=== PATIENT | male | born 1965 | race Two or more races ===

== ENCOUNTER 2025-03-03 20:35 | Emergency (ER) | payer OTHER ==
[~2025-03-03] VITALS: Ht 188 cm; Wt 170.5 kg
[2025-03-03] MEDS: ONDANSETRON HCL 4 MG/2 ML VIAL IV ONE (21:00)
[2025-03-03] MEDS: MORPHINE SULFATE INJ 2 MG/ml SYRG IV ONE ×2 (21:00→22:28)
[2025-03-03] MEDS: LABETALOL HCL 20 MG/4 ML VL IV ONE (21:00)
[2025-03-03 21:12] LABS: Basophils # (auto) 0 10 ^3/uL (0-0.2); Basophils % (auto) 0.4 % (0.0-2.0); Eosinophils # (auto) 0.1 10 ^3/uL (0-0.8); Eosinophils % (auto) 1.1 % (0.0-7.0); Hematocrit 41.3 % (41.0-53.0); Hemoglobin 13.9 g/dL (13.5-17.5); Lymphocytes # (auto) 1.3 10 ^3/uL (0.4-5.4); Lymphocytes % (auto) 11.3 % (10.0-50.0); Mean Corpuscular Hgb Conc. 33.5 g/dL (32.0-36.0); Mean Corpuscular Volume 95.4 fL (80.0-100.0); Monocytes # (auto) 0.6 10 ^3/uL (0-1.3); Monocytes % (auto) 5.5 % (0.0-12.0); Neutrophils # (auto) 9.1 10 ^3/uL (1.6-8.6); Neutrophils % (auto) 81.7 % (37.0-80.0); Platelet Count (auto) 303 10^3/uL (140-450); Red Blood Cells 4.33 10^6/uL (4.5-5.90); Red Cell Distribution Width 13.6 % (11.8-14.3); White Blood Cell 11.1 10^3/uL (4.4-10.8)
[2025-03-03] MEDS: IOHEXOL 350 MG/ML 100ML IJ ONE ×2 (21:14→21:15)
[2025-03-03 21:25] LABS: Alanine Aminotransferase 19 U/L (7-40); Albumin 4.7 g/dL (3.2-4.8); Alkaline Phosphatase 90 U/L (46-116); Anion Gap 13 (5-15); Aspartate Aminotransferase 17 U/L (13-40); BUN/Creatinine Ratio 17.5 (10.0-20.0); Blood Urea Nitrogen 18 mg/dL (9-23); Calcium 9.8 mg/dL (8.7-10.4); Carbon Dioxide 24 mmol/L (20-31); Chloride 104 mmol/L (98-107); Potassium 4.5 mmol/L (3.5-5.1); Sodium 141 mmol/L (136-145); Total Protein 7.5 g/dL (5.7-8.2)
[2025-03-03 21:26] LABS: Bilirubin, Total 0.3 mg/dL (0.2-1.0)
[2025-03-03 21:28] LABS: Glucose 149 mg/dL (74-106); INR 1.01 (0.9-1.15); Prothrombin Time 10.7 sec (9.3-11.8)
[2025-03-03] MEDS: MORPHINE SULFATE 4 MG/ML SYR/VIAL ONE ×2 (21:42→22:28)
--- NOTE | 2025-03-03 21:42 | ED.PDOC ---
History of Present Illness HPI Comments 59-year-old male who presents with complaint of severe 10/10 chest pain that radiates to his back, with occasional numbness to his right leg. Patient states on sudden unprovoked onset after attempting to get up from a chair during a follow up appointment for recent cosmetic toe surgery an hour ago prior to arrival. Patient also reports chicken on his blood pressure twice at home and noticing it being elevated at 182/81 and 175/70 over 70 No other recent stressors, strenuous activities, ailments, sick contact, or travel endorsed. Patient has a history of asthma, BPH, chronic pain syndrome, prediabetes, hypertension, morbid obesity, and former tobacco and alcohol user. He denies having any shortness of breath, palpitations, nausea or further associated symptoms. Patient presents CT scan which showed 4.6 cm dilatation of thoracic aorta in 2023. Chief Complaint: Chest Pain Time Seen by MD: 20:30 Reviewed Notes: Nurses Notes, Medications, Allergies Allergies: Coded Allergies: Bee Venom (Verified Allergy, Unknown, 03/03/25) Penicillins (Verified Allergy, Unknown, 03/03/25) Information Source: Patient Mode of Arrival: Ambulatory Severity: Moderate Timing: Hours Duration: Since onset Prehospital treatment: None Review of Systems: REVIEW OF SYSTEMS: No fever, no chills, or fatigue HEENT: No sore throat, no earache, no congestion, no neck pain. Cardiac: Chest pain. No palpitations. Lungs: No shortness of breath, no cough. GI: No nausea, no vomiting, no diarrhea, no constipation, no abdominal pain : No dysuria, frequency, or urgency. No hematuria. Musculoskeletal: Back pain, no joint pain , no joint swelling, no extremity edema. Skin: No rash, no itching. Neuro: Right leg numbness, no headache, no dizziness, no weakness Vital Signs Vital Signs Date Time Temp Pulse Resp B/P (MAP) Pulse Ox O2 Delivery O2 Flow Rate FiO2 03/03/25 22:30 177/78 03/03/25 22:28 65 11 03/03/25 21:54 94 Room Air* 0 21 03/03/25 21:45 99.2 99.2 Physical Exam General: Awake, alert and oriented. No acute distress. Skin: Skin in warm, dry and intact. Appropriate color for ethnicity. HEENT: The head is normocephalic and atraumatic. Conjunctivae are clear without exudates or hemorrhage. Sclera is non-icteric. EOM are intact. No signs of nystagmus. Eyelids are normal in appearance without swelling or lesions. Oral mucosa is pink and moist Neck: The neck is supple with normal range of motion. No JVD. Cardiac: Heart rate and rhythm are normal. No murmurs, gallops, or rubs are auscultated. Right upper quadrant blood pressure is greater than left upper quadrant blood pressure. Radial pulses are equal. Respiratory: No signs of respiratory distress. Lung sounds are clear in all lobes bilaterally without rales, rhonchi, or wheezes. Abdominal: Abdomen is soft, non-tender without distention, guarding or rigidity. Bowel sounds are present and normoactive in all four quadrants. Extremities: Upper and lower extremities are atraumatic in appearance without deformity or edema. Neurological: The patient is awake, alert and oriented to person, place, and time with normal speech. Speech is clear. There is no facial asymmetry. Psychiatric: Appropriate mood and affect. Good judgement and insight. Past Medical History PAST MEDICAL HISTORY: Asthma, HTN Past Medical History (Other): Morbid obesity BPH Prediabetes Chronic pain syndrome Surgical History (Other): Left eye surgery Neck cyst Social History Smoker: Quit Greater Than 1 Year Alcohol: Sober Drugs: Denies Drug Use Lives In: Home Was a procedure done? Was a procedure done?: No EKG EKG #1: Pulse Rate (adult): 65 [place]: Normal Cardiac Rhythm: NSR Block: None Hypertrophy: None ST: Normal EKG #2: Pulse Rate (adult): 59 [place]: Normal Cardiac Rhythm: NSR Block: None Hypertrophy: None ST: Normal Differential Dx Considerations may include: Differential diagnoses considered include acute ischemic coronary syndrome, aortic dissection, cardiac tamponade, mediastinitis, pulmonary embolus, pneumothorax, tension pneumothorax, esophageal rupture, coronary artery vasospasm, myocarditis, pericarditis, pneumonia, pulmonary edema, esophageal tear, pancreatitis, aortic stenosis, dilated cardiomyopathy, hypertrophic cardiomyopathy, mitral valve prolapse, malignancy, pleuritis, pneumomediastinum, primary pulmonary hypertension, cholecystitis, esophageal spasm, esophagus, gastritis, GERD, peptic ulcer disease, costochondritis, fibromyalgia, rib fracture, herpes zoster, radicular syndromes, thoracic outlet syndrome, so matization. X-Ray, Labs, Meds, VS Vital Signs Date Time Temp Pulse Resp B/P (MAP) Pulse Ox O2 Delivery O2 Flow Rate FiO2 03/03/25 22:30 177/78 03/03/25 22:28 65 11 171/74 03/03/25 22:08 59 03/03/25 21:54 60 13 94 Room Air* 0 21 03/03/25 21:45 99.2 60 13 176/70 (105) 94 99.2 03/03/25 21:42 59 03/03/25 21:42 65 03/03/25 21:05 98.0 66 24 194/87 (122) 97 98.0 03/03/25 21:00 66 173/78 03/03/25 21:00 66 22 173/78 03/03/25 20:42 65 Lab Test 03/03/25 21:33 03/03/25 20:44 Range/Units Troponin I High Sensitivity 4 5 </=54 ng/L White Blood Count 11.1 H 4.4-10.8 10^3/uL Red Blood Count 4.33 L 4.5-5.90 10^6/uL Hemoglobin 13.9 13.5-17.5 g/dL Hematocrit 41.3 41.0-53.0 % Mean Corpuscular Volume 95.4 80.0-100.0 fL Mean Corpuscular Hemoglobin 32.0 28.0-32.0 pg Mean Corpuscular Hemoglobin Concent 33.5 32.0-36.0 g/dL Red Cell Distribution Width 13.6 11.8-14.3 % Platelet Count 303 140-450 10^3/uL Mean Platelet Volume 8.1 6.9-10.8 fL Neutrophils (%) (Auto) 81.7 H 37.0-80.0 % Lymphocytes (%) (Auto) 11.3 10.0-50.0 % Monocytes (%) (Auto) 5.5 0.0-12.0 % Eosinophils (%) (Auto) 1.1 0.0-7.0 % Basophils (%) (Auto) 0.4 0.0-2.0 % Neutrophils # (Auto) 9.1 H 1.6-8.6 10 ^3/uL Lymphocytes # (Auto) 1.3 0.4-5.4 10 ^3/uL Monocytes # (Auto) 0.6 0-1.3 10 ^3/uL Eosinophils # (Auto) 0.1 0-0.8 10 ^3/uL Basophils # (Auto) 0 0-0.2 10 ^3/uL Nucleated Red Blood Cells 0.0 % Prothrombin Time 10.7 9.3-11.8 sec Prothrombin Time INR 1.01 0.9-1.15 Sodium Level 141 136-145 mmol/L Potassium Level 4.5 3.5-5.1 mmol/L Chloride Level 104 98-107 mmol/L Carbon Dioxide Level 24 20-31 mmol/L Anion Gap 13 5-15 Blood Urea Nitrogen 18 9-23 mg/dL Creatinine 1.03 0.700-1.30 mg/dL Glomerular Filtration Rate Calc 84 >90 mL/min BUN/Creatinine Ratio 17.5 10.0-20.0 Serum Glucose 149 H 74-106 mg/dL Calcium Level 9.8 8.7-10.4 mg/dL Total Bilirubin 0.3 0.2-1.0 mg/dL Aspartate Amino Transferase (AST) 17 13-40 U/L Alanine Aminotransferase (ALT) 19 7-40 U/L Alkaline Phosphatase 90 46-116 U/L B-Type Natriuretic Peptide 63.82 0-100 pg/mL Total Protein 7.5 5.7-8.2 g/dL Albumin 4.7 3.2-4.8 g/dL Current Medications Medications (Trade) Dose Ordered Sig/Ariel Route Start Time Stop Time Status Last Admin Morphine Sulfate 2 mg ONCE ONCE IV 03/03/25 21:00 03/03/25 21:01 DC 03/03/25 21:00 Ondansetron HCl (Zofran) 4 mg ONCE ONCE IV 03/03/25 21:00 03/03/25 21:01 DC 03/03/25 21:00 Labetalol HCl (Labetalol HCl) 20 mg ONCE ONCE IV 03/03/25 21:00 03/03/25 21:01 DC 03/03/25 21:00 Esmolol HCl (Brevibloc) 5 mg ONCE ONCE IV 03/03/25 21:45 03/03/25 21:46 DC 03/03/25 21:45 Esmolol HCl 250 ml @ 0 mls/hr Q0M IV 03/03/25 21:45 03/03/25 22:30 Morphine Sulfate 2 mg ONCE ONCE IV 03/03/25 22:15 03/03/25 22:16 DC 03/03/25 22:28 Time of 1ST Reevaluation: 21:00 Reevaluation 1ST: Unchanged Patient Education/Counseling: Other (need for transfer) Family Education/Counseling: No Family Present Departure 1 Departure Time of Disposition: 22:05 Impression: Primary Impression: Dissection of descending aorta Disposition: 02 SHORT TERM HOSPITAL Condition: Guarded Comments 59 year old male with dissection of descending aorta. Blood pressure control initiated in ED with labetalol, esmolol bolus and drip and morphine for analgesia. Patient's vs stable at this time but guarded prognosis. Will transfer to [facility] for CT surgery/Vascular surgery availability. 2139: Discussed with ER Provider at [place] request for transfer due to lack of vascular or CT surgery availability at this facility and obvious dissection on CTA. She is requesting official radiologist interpretation of scan prior to accepting for transfer. 2146: Discussed with Dr. Cesar ER provider at [facility]. Recommendation is discuss with CT surgery prior to acceptance. [facility] is on advisory / diversion at this time due to capacity. 2150: Discussed with Dr. Spears CT surgeon at [facility], recommendation is no surgical emergent surgical management at this time. Recommends medical management with blood pressure control. He will consult on patient if admitted to [facility] under medical management. Patient accepted for transfer to [facility]. Extensive evaluation was performed in attempt to identify or rule out: (See differential diagnosis section) The following tests were ordered, and results were reviewed by me and discussed with patient: (See diagnostic results section) The following test were independently interpreted by me: EKG, CT angiogram Chest Abdomen Pelvic-dissection of descending aorta thoracic to abdomen above level of renal arteries. I reviewed and agreed with the following test results read by other providers: N/A I reviewed the following notes from the pt's past medical encounters: N/A Additional information was gathered from interviewing the following independent historians: N/A Discussion of management or test interpretation with external physician/other qualified health healthcare science specialist: N/A Addressed an acute or chronic illness that poses a threat to life or bodily function: Aortic Dissection Decision regarding hospitalization or escalation of hospital level of care: Risk and benefits of admission for further treatment of patient's condition was considered. Due to patient's current clinical condition, high risk of decline and poor outcome if discharged and need for further inpatient management and monitoring, patient will be admitted to the hospital. Drug therapy requiring intensive monitoring for toxicity: IV Contrast. IV labetalol. IV esmolol Parenteral controlled substances: IV morphine Decision regarding elective major surgery with identified patient or procedure risk factors: N/A Decision regarding emergency major surgery: N/A Decision not to resuscitate or to de-escalate care because of poor prognosis: N/A Diagnosis or treatment significantly limited by social determinants of health: N/A Critical Care Note Critical Care Time?: Yes (1 hr-critical care time only) Stability Stability form required: No Heart Score Heart Score: Heart Score Response (Comments) Value History Highly Suspicious 2 EKG Normal 0 Age 45-64 1 Risk Factors >3 or Hx ASHD 2 Troponin Normal limit 0 Total 5 I personally scribed for LUCÍA MATTHEWS MD ([email or web address]) on 03/03/25 at 21:42. Electronically submitted by Bentley Zambrano ([email or web address]). I personally scribed for LUCÍA MATTHEWS MD ([email or web address]) on 03/03/25 at 21:43. Electronically submitted by Bentley Zambrano ([email or web address]). I personally scribed for LUCÍA MATTHEWS MD ([email or web address]) on 03/03/25 at 22:08. Electronically submitted by Bentley Zambrano ([email or web address]). LUCÍA MATTHEWS MD Mar 03, 2025 21:42
[2025-03-03] MEDS: ESMOLOL HCL (10MG/ML) 10 ML VIAL IV ONE (21:45)
[2025-03-03 21:54] VITALS: PULSE 60; RESP 13; O2SAT 94
[2025-03-03] MEDS: ESMOLOL HCL 10MG/ML 250 ML IV SCH (22:30)
--- NOTE | 2025-03-03 22:38 | DVH ---
Exam: CT CT CHEST/AB/PL W CON- IV ONLY History: r/o dissection/ AAA Comparison Study: NO PRIOR STUDIES FOR COMPARISON. Contrast: Type of contrast: Omni 350 Contrast injected: 150 mL Contrast wasted: 0 TECHNIQUE: A digital dextrine mixer image was obtained. During the uneventful, intravenous administration of c ontrast material, multislice data acquisition was obtained through the abdomen and pelvis. The data s et was subsequently reconstructed into axial images. Images were reviewed on a work station using a c ombination of axial and multiplanar using a variety of window levels and settings. Radiation Dose Information: CT Dose: CTDI volume is 20.44 mGy. Dose-length product is 4172.45 mGy*cm FINDINGS: Lung Bases: No acute or significant lung base finding. Normal heart size. No pleural or pericardial effusion. Liver: The liver is normal in size. No focal lesions. Normal hepatic vascular enhancement. Gallbladder and Biliary Tree: Unremarkable Spleen: Unremarkable Pancreas: The pancreas is normal in appearance without focal lesions or abnormal enhancement. Adrenal Glands: Unremarkable Kidneys: Kidneys demonstrate normal symmetric enhancement without focal lesions, calculi or hydroneph rosis. 5.7 cm left renal cyst Bladder: Unremarkable Bowel: The stomach is grossly normal in appearance. Small bowel and colon are normal in caliber and d istribution. The appendix is not visualized; however, no secondary findings of acute appendicitis timothy ntified. Ascites: Absent Lymphadenopathy: No mesenteric, retroperitoneal or periportal lymphadenopathy. Abdominal Wall and Mesentery: Unremarkable. Vasculature: Aortic dissection in the descending thoracic aorta into the abdominal aorta. That appear s to originate just distal to the left subclavian artery and extends to the diaphragm and distal to t he celiac and superior mesenteric arteries and into the iliac arteries bilaterally. This is considere d a [place] type B dissection or [place]ake[place] Type 3 dissection and extends inferior to the Celiac and [place] perior Mesenteric arteries with no occlusion. The aortic dissection also appears extend into the katina l arteries and right and left iliac arteries. CT resolution is inadequate to determine if the dissection extends into the renal arteries 4 into the iliac arteries. Patient's body size precludes resolution necessary to determine Pelvic Organs: Unremarkable Musculoskeletal: No aggressive focal bony lesions, acute fractures or dislocation. Soft tissues: Unremarkable. IMPRESSION: 1. Aortic dissection originating distal to the left subclavian artery and extending into the abdomen and iliac arteries bilaterally. 2. Dissection extends into the celiac and superior mesenteric artery. 3. CT resolution is suboptimal because of patient body size for definitive evaluation of extent of th e dissection. 4. Dissection appears to extend into the right and left renal arteries into the right and left iliac arteries to the femoral artery. All CT scans at this medical facility are performed using dose modulation techniques as appropriate t o a performed exam including the following: Automated exposure control was utilized; adjustment of th e MA and/or KV according to patient size; and use of iterative reconstruction technique.
[2025-03-03 22:44] VITALS: TEMP 98.6
[2025-03-03 22:45] VITALS: O2SAT 94
[2025-03-03 23:00] VITALS: BP 162/82; PULSE 67; RESP 13
--- NOTE | 2025-03-04 06:06 | ECG ---
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
--- NOTE | 2025-03-04 06:53 | ECG ---
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
== END 2025-03-03 22:59 | disposition home or self-care (01) ==
LOC: ER 20:42
DX: I71.012 Dissection of descending thoracic aorta (principal); J45.909 Unspecified asthma, uncomplicated; I10 Essential (primary) hypertension; Z88.0 Allergy status to penicillin; Z79.899 Other long term (current) drug therapy
CPT/HCPCS: 36415; 71260; 74177; 80053; 83880; 84484; 85025; 85610; 93005; 96374; 96375; 96376; 99285; J2270; J2405; Q9967

== ENCOUNTER 2025-06-17 09:22 | Inpatient (IN) | payer OTHER ==
[~2025-06-17] VITALS: Ht 188 cm; Wt 140.7 kg
[2025-06-17] VITALS (9 sets, daily range): BP systolic 107–136; BP diastolic 68–78; PULSE 58–92; RESP 12–20; TEMP 97.7–98.7; O2SAT 95–100
[2025-06-17] MEDS: LACTATED RINGER'S 2,450 ML IV ONE (10:36)
[2025-06-17 10:46] LABS: Hematocrit 41.3 % (41.0-53.0); Hemoglobin 14.1 g/dL (13.5-17.5); Mean Corpuscular Hemoglobin 29.1 pg (28.0-32.0); Mean Corpuscular Volume 85.2 fL (80.0-100.0); Nucleated Red Blood Cells % 0.0 %
--- NOTE | 2025-06-17 10:56 | DVH ---
CHEST RADIOGRAPH Indication: sob Technique: Single frontal view of the chest was obtained COMPARISON: CT CT CHEST/AB/PL W CON- IV ONLY on DOS: 03/03/25 FINDINGS: Lines and Tubes: None Lungs: Clear Pleura: No effusion. No pneumothorax. Cardiomediastinal contours: Thoracic aorta stent in-situ. Bones: Unremarkable IMPRESSION: No acute disease.
--- NOTE | 2025-06-17 10:59 | ED.PDOC ---
SOB-HPI HPI Comments 59 y/o M, with PMHx of AAA, DM II, HTN, and asthma presents to the ED for CC of shortness of breath. EMS reports, patient is coming from home where he c/o of having a syncopal episode then becoming short of breath following episode. Per EMS, upon arrival to scene patient was found down on the floor with labored breathing; respirations 35 and SpO2 at 95% via 2L NC. Upon arrival to the ED, patient further complains of diarrhea and poor appetite. Patient denies fever, chills, sore-throat, abdominal pain, or chest pain. No other symptoms or modifying factors are present at this time. Chief Complaint: Shortness of Breath Time Seen by MD: 10:15 Reviewed notes: Nurses Notes, Community Nurse Notes, Medications, Allergies Information Source: Patient, Emergency Med Personnel Mode of Arrival: EMS Severity: Moderate Timing: Days Duration: Since onset Context: At Rest PE Risk Factors: None History of: Asthma Prehospital treatment: None Modifying Factors: Nothing Associated Signs and Symptoms: None Past Medical History PAST MEDICAL HISTORY: Asthma, DM, HTN Surgical History (Other): AAA REPAIR Family History Family History: Unknown Social History Smoker: Quit Greater Than 1 Year Alcohol: Sober Drugs: Denies Drug Use Lives In: Home Constitutional: denies: chills, diaphoresis, fatigue, fever, malaise, sweats, weakness, others EENTM: denies: blurred vision, double vision, ear bleeding, ear discharge, ear drainage, ear pain, ear ringing, eye pain, eye redness, hearing loss, mouth pain, mouth swelling, nasal discharge, nose bleeding, nose congestion, nose pain, photophobia, tearing, throat pain, throat swelling, voice changes, others Respiratory: reports: shortness of breath; denies: cough, hemoptysis, orthopnea, SOB at rest, SOB with excertion, stridor, wheezing, others Cardiovascular: denies: chest pain, dizzy spells, diaphoresis, Dyspnea on exertion, edema, irregular heart beat, left arm pain, lightheadedness, palpitations, PND, syncope, others Gastrointestinal: reports: poor appetite; denies: abdomen distended, abdominal pain, blood streaked bowels, constipated, diarrhea, dysphagia, difficulty swallowing, hematemesis, melena, nausea, poor fluid intake, rectal bleeding, rectal pain, vomiting, others Genitourinary: denies: burning, dysuria, flank pain, frequency, hematuria, incontinence, penile discharge, penile sore, pain, testicle pain, testicle swelling, urgency, others Neurological: denies: dizziness, fainting, headache, left sided numbness, left sided weakness, numbness, paresthesia, pre-existing deficit, right sided numbness, right sided weakness, seizure, speech problems, tingling, tremors, weakness, others Musculoskeletal: denies: back pain, gout, joint pain, joint swelling, muscle pain, muscle stiffness, neck pain, others Integumetry: denies: bruises, change in color, change in hair/nails, dryness, laceration, lesions, lumps, rash, wounds, others Allergic/Immunocompromised: denies: Difficulty Healing, Frequent Infections, Hives, Itching, others Hematologic/Lymphatic: denies: anemia, blood clots, easy bleeding, easy bruising, swollen glands, others Endocrine: denies: excessive hunger, excessive sweating, excessive thirst, excessive urination, flushing, intolerance to cold, intolerance to heat, unexplained weight gain, unexplained weight loss, others Psychiatric: denies: anxiety, bipolar disorder, depression, hopeless, panic disorder, schizophrenia, sleepless, suicidal, others All Other Systems: Reviewed and Negative Physical Exam General Appearance: No Apparent Distress, Obese HEENT: Normal ENT Inspection, Pharynx Normal Neck: Full Range of Motion, Non-Tender, Normal, Normal Inspection Respiratory: Chest Non-Tender, Lungs Clear, Other (tachypnea breathing) Cardiovascular: No Edema, No Murmur, No Gallop, Normal Peripheral Pulses, Regular Rate/Rhythm Breast Exam: Deferred Gastrointestinal: No Organomegaly, Non Tender, No Pulsatile Mass, Normal Bowel Sounds, Soft Genitalia: Deferred Pelvic: Deferred Rectal: Deferred Extremities: No calf tenderness, Normal capillary refill, Normal inspection, Normal range of motion, Non-tender, No pedal edema Musculoskeletal : Apperance: Normal Neurologic: Alert, strainer tender II-XII nml as Tested, No Motor Deficits, Normal Affect, Normal Mood, No Sensory Deficits Cerebellar Function: Normal Reflexes: Normal Skin: Dry, Normal Color, Warm Lymphatic: No Adenopathy Was a procedure done? Was a procedure done?: No Differential Dx Differential Diagnosis: Asthma, Bronchitis, Pneumonia, Sinusitis, Pharyngitis, URI X-Ray, Labs, Meds, VS Vital Signs Date Time Temp Pulse Resp B/P (MAP) Pulse Ox O2 Delivery O2 Flow Rate FiO2 06/17/25 13:00 74 10 136/76 (96) 96 06/17/25 12:45 76 06/17/25 11:00 92 10 105/69 (81) 99 06/17/25 10:50 90 06/17/25 09:57 92 12 98 Nasal Cannula* 3 32 06/17/25 09:57 97.7 92 12 97/58 (71) 98 97.7 06/17/25 09:33 97.7 95 35 104/68 94 97.7 Lab Test 06/17/25 12:42 06/17/25 10:30 Range/Units Lactic Acid Level 3.7 *H 4.3 *H 0.4-2.0 mmol/L White Blood Count 12.5 H 4.4-10.8 10^3/uL Red Blood Count 4.85 4.5-5.90 10^6/uL Hemoglobin 14.1 13.5-17.5 g/dL Hematocrit 41.3 41.0-53.0 % Mean Corpuscular Volume 85.2 80.0-100.0 fL Mean Corpuscular Hemoglobin 29.1 28.0-32.0 pg Mean Corpuscular Hemoglobin Concent 34.2 32.0-36.0 g/dL Red Cell Distribution Width 16.0 H 11.8-14.3 % Platelet Count 174 140-450 10^3/uL Mean Platelet Volume 8.7 6.9-10.8 fL Neutrophils (%) (Auto) 86.7 H 37.0-80.0 % Lymphocytes (%) (Auto) 9.1 L 10.0-50.0 % Monocytes (%) (Auto) 3.9 0.0-12.0 % Eosinophils (%) (Auto) 0.2 0.0-7.0 % Basophils (%) (Auto) 0.1 0.0-2.0 % Neutrophils # (Auto) 10.8 H 1.6-8.6 10 ^3/uL Lymphocytes # (Auto) 1.1 0.4-5.4 10 ^3/uL Monocytes # (Auto) 0.5 0-1.3 10 ^3/uL Eosinophils # (Auto) 0 0-0.8 10 ^3/uL Basophils # (Auto) 0 0-0.2 10 ^3/uL Nucleated Red Blood Cells 0.0 % Prothrombin Time 11.8 9.3-11.8 sec Prothrombin Time INR 1.13 0.9-1.15 Activated Partial Thromboplast Time 27.3 24.5-34.5 SEC Sodium Level 126 L 136-145 mmol/L Potassium Level 3.0 L 3.5-5.1 mmol/L Chloride Level 82 L 98-107 mmol/L Carbon Dioxide Level 22 20-31 mmol/L Anion Gap 22 H 5-15 Blood Urea Nitrogen 38 H 9-23 mg/dL Creatinine 2.54 H 0.700-1.30 mg/dL Glomerular Filtration Rate Calc 28 >90 mL/min BUN/Creatinine Ratio 15.0 10.0-20.0 Serum Glucose 92 74-106 mg/dL Calcium Level 9.3 8.7-10.4 mg/dL Total Bilirubin 0.9 0.2-1.0 mg/dL Aspartate Amino Transferase (AST) 24 13-40 U/L Alanine Aminotransferase (ALT) 20 7-40 U/L Alkaline Phosphatase 125 H 46-116 U/L Total Protein 6.7 5.7-8.2 g/dL Albumin 3.7 3.2-4.8 g/dL Current Medications Medications (Trade) Dose Ordered Sig/Ariel Route Start Time Stop Time Status Last Admin Lactated Ringer's 2,450 ml @ 2,450 mls/hr ONCE ONCE IV 06/17/25 10:30 06/17/25 11:29 DC 06/17/25 10:36 Vancomycin HCl 250 ml @ 250 mls/hr ONCE ONCE IV 06/17/25 11:15 06/17/25 12:14 DC 06/17/25 11:28 Cefepime HCl 50 ml @ 12.5 mls/hr Q12H IV 06/17/25 11:20 06/17/25 12:[address] [address] Ph: [phone] DIAGNOSTIC IMAGING Diagnostic Imaging Report : [id number] Signed PATIENT: DAYNE FORRESTER ACCT: [id number] UNIT: [id number] : 1965 LOC: ER ROOM / BED: / AGE / SEX: 59 / M ADM STATUS: REG ER SERVICE 1019 ORDERING PHYSICIAN: MOISES BURKS MD PROCEDURE(s): CXRP - CHEST PORTABLE REASON: sob ORDER NUMBER(s): [id number], ACCESSION NUMBER(s): [id number] CHEST RADIOGRAPH Indication: sob Technique: Single frontal view of the chest was obtained COMPARISON: CT CT CHEST/AB/PL W CON- IV ONLY on DOS: 03/03/25 FINDINGS: Lines and Tubes: None Lungs: Clear Pleura: No effusion. No pneumothorax. Cardiomediastinal contours: Thoracic aorta stent in-situ. Bones: Unremarkable IMPRESSION: No acute disease. ATED BY: SAGE HUTTON MD DICTATED DATE/TIME: 06/17/25 105 SIGNED BY: SAGE HUTTON MD SIGNED DATE/TIME: 06/17/25 105 CC: Time of 1ST Reevaluation: 10:45 Reevaluation 1ST: Unchanged Patient Education/Counseling: Diagnosis, Treatment Family Education/Counseling: No Family Present SEPSIS Sepsis Screen Date sepsis recognized/suspect: Jun 17, 2025 Time Sepsis recognized/suspect: 927 Recent Procedure: No On Antibiotic Therapy: No Respiratory Rate >20: Yes Heart Rate >90: No Temp<36 C (96.8 F) or >38.3 C: No SBP <90 or MAP <65 mmHG: No New Acute Mental Status Change: No Is the patient on CPAP, BIPAP,: No Physician Orders Urinalysis (06/17/25 10:19) Chest Portable (06/17/25 10:19) Accucheck (06/17/25 10:19) Blood Culture (06/17/25 10:19) Notify Md If Map <65 Or Bp<90 (06/17/25 10:19) If Map<65 Start Vasopressor (06/17/25 10:19) Sepsis Reassesment After Fluid (06/17/25 11:19) Cefepime 1gm/50ml (Maxipime 1gm/50ml) (06/17/25 11:20) Sodium Chloride 0.9% (06/17/25 14:00) Vital Signs Date Time Temp Pulse Resp B/P (MAP) Pulse Ox O2 Delivery O2 Flow Rate FiO2 06/17/25 13:00 74 10 136/76 (96) 96 06/17/25 12:45 76 06/17/25 11:00 92 10 105/69 (81) 99 06/17/25 10:50 90 06/17/25 09:57 92 12 98 Nasal Cannula* 3 32 06/17/25 09:57 97.7 92 12 97/58 (71) 98 97.7 06/17/25 09:33 97.7 95 35 104/68 94 97.7 Laboratory Tests Test 06/17/25 10:30 06/17/25 12:42 Lactic Acid Level 4.3 mmol/L (0.4-2.0) *H 3.7 mmol/L (0.4-2.0) *H White Blood Count 12.5 10^3/uL (4.4-10.8) H Medications Medications Dose Ordered Sig/Ariel Route Start Time Stop Time Status Last Admin Dose Admin Cefepime HCl 50 ml @ 12.5 mls/hr Q12H IV 06/17/25 11:20 06/17/25 12:35 Lactated Ringer's 2,450 ml @ 2,450 mls/hr ONCE ONCE IV 06/17/25 10:30 06/17/25 11:29 DC 06/17/25 10:36 Vancomycin HCl 250 ml @ 250 mls/hr ONCE ONCE IV 06/17/25 11:15 06/17/25 12:14 DC 06/17/25 11:28 Departure 1 Departure Time of Disposition: 14:35 ([place] authorization to admit to [facility] [id number] with concern for septic shock. Patient is not unstable for transfer. We will empirically cover patient with antibiotics fluids and admit patient for further workup and expert consultation) Impression: Primary Impression: Septic shock Additional Impression: Generalized weakness Disposition: ADMITTED INPATIENT Admit to: [facility] Condition: Guarded Critical Care Note Critical Care Time?: Yes Critical care comment: Concern for septic shock Authorized and Performed by: Moises Burks MD Total critical care time: Approximately 129 minutes Due to a high probability of clinically significant, life threatening d eterioration, the patient required my highest level of preparedness to intervene emergently and I personally spent this critical care time directly and personally managing the patient. This critical care time included obtaining a history; examining the patient; pulse oximetry; ordering and review of studies; arranging urgent treatment with development of a management plan; evaluation of patient's response to treatment; frequent reassessment; and, discussions with other providers. This critical care time was performed to assess and manage the high probability of imminent, life-threatening deterioration that could result in multi-organ failure. It was exclusive of separately billable procedures and treating other patients and teaching time. Please see my other sections and the rest of the note for further information on patient assessment and treatment. Stability Stability form required: No Heart Score Heart Score: Heart Score Response (Comments) Value History N/A 0 EKG N/A 0 Age N/A 0 Risk Factors N/A 0 Troponin N/A 0 Total 0 I personally scribed for MOISES BURKS MD ([email or web address]) on 06/17/25 at 10:59. Electronically submitted by Rosy Edwards ([email or web address]). I personally scribed for MOISES BUKRS MD ([email or web address]) on 06/17/25 at 12:56. Electronically submitted by Rosy Edwards ([email or web address]). MOISES BURKS MD Jun 17, 2025 10:59
[2025-06-17 11:01] LABS: Alanine Aminotransferase 20 U/L (7-40); Albumin 3.7 g/dL (3.2-4.8); Anion Gap 22 (5-15); BUN/Creatinine Ratio 15.0 (10.0-20.0); Bilirubin, Total 0.9 mg/dL (0.2-1.0); Calcium 9.3 mg/dL (8.7-10.4); Carbon Dioxide 22 mmol/L (20-31); Glucose 92 mg/dL (74-106); Total Protein 6.7 g/dL (5.7-8.2)
[2025-06-17 11:03] LABS: Alkaline Phosphatase 125 U/L (46-116); Blood Urea Nitrogen 38 mg/dL (9-23); Chloride 82 mmol/L (98-107); Potassium 3.0 mmol/L (3.5-5.1); Sodium 126 mmol/L (136-145)
[2025-06-17 11:08] LABS: Lactic Acid w/Reflex 4.3 mmol/L (0.4-2.0)
[2025-06-17] MEDS ORDERED: CEFEPIME 1GM/50ML 50 ML IV SCH ×3 (11:15→14:00)
[2025-06-17] MEDS: VANCOMYCIN 1GM/250ML KIT 250 ML IV ONE (11:28)
[2025-06-17 11:51] LABS: INR 1.13 (0.9-1.15); Partial Thromboplastin Time 27.3 SEC (24.5-34.5); Prothrombin Time 11.8 sec (9.3-11.8)
[2025-06-17] MEDS: CEFEPIME 1GM/50ML 50 ML IV SCH (12:35)
--- NOTE | 2025-06-17 12:36 | ECG ---
[facility] Test Date: 2025-06-17 Test Time: 09:44:22 Pat Name: DAYNE FORRESTER Department: [facility] ED Patient ID: [facility]-[id number] Room: Gender: M [facility] Former: IVELISSE : 1965 Requested By: MOISES HAMPTON Order Number: [id number] Reading MD: Measurements Intervals [place] Rate: 97 P: -21 NV: 143 QRS: 9 QRSD: 151 T: -12 QT: 324 QTc: 412 Interpretive Statements Sinus rhythm Consider right atrial enlargement Nonspecific intraventricular conduction delay Minimal ST depression Artifact in lead(s) I,III,aVL Please click the below link to view image of tracing.
[2025-06-17] MEDS: SODIUM CHLORIDE 0.9% 1,000 ML IV ONE (15:59)
[2025-06-17 16:35] LABS: Urine Protein, UAD 1+ (Negative)
[2025-06-17] MEDS ORDERED: SUCR1TAB PO (16:47)
--- NOTE | 2025-06-17 16:57 | DVHHP2 ---
History of Present Illness Reason for Visit: SOB History of Present Illness Immanuel Mcmahan is a 59-year-old male with past medical history of nephrolithiasis, asthma, diabetes, hypertension, left retina surgery, mole removal on chest and shoulder, and removal of cyst on neck, and AAA repair who presents to the ED with shortness of breath and reports that has been ongoing for several months since February of 2025 after his AAA repair. Patient also reports of having a syncopal episode then becoming short of breath. Per EMS reports patient was found on the floor with labored breathing and satting around 95% on 2 L nasal cannula with respirations 35. Patient also endorsing poor appetite and diarrhea. Patient reports that [place] had initially sent him to a rehab facility then he stated that he went to [facility] and was supposed to go to a post-acute center. Patient also endorses vomiting bile like color for the last several months as well as coughing up clear phlegm. Patient reports that he is compliant with his medications but does not recall the names of them. He also endorses that he has not walked since February of 2025. He did state that when he was hospitalized physical therapy was working with him and he was able to use a front wheel walker. Patient also reports that he quit smoking 6 years ago. He also denies of any kidney issues except for kidney stones. Patient denies of any chest pain, fever, chills, lightheadedness, weakness, dizziness, recent trauma or injury, recent sick contacts, recent travels, recent ingestion of spoiled food, abdominal pain, or urinary symptoms. The primary nurse reported that she had to prompt the patient to void as when she had bladder scan him it was over 800 mL. Shortly afterwards patient was able to void over 900 mL. Patient did endorse to nurse that he takes Flomax. Cardiovascular: HTN Pulmonary: Asthma Endocrine: Diabetes Past Surgical History: Other (AAA repair) Family History: Cancer, Other (Dad with cancer unknown per patient) Smoke: Quit ALCOHOL: none Drugs: None Lives: Alone Domestic Violence: Neg Review of Systems Constitutional: Yes: Other (Syncope) Respiratory: Shortness of breath Gastrointestinal: Diarrhea Allergies: Coded Allergies: Bee Venom (Verified Allergy, Unknown, 03/03/25) Penicillins (Verified Allergy, Unknown, 03/03/25) Medications Current Medications Medications Dose Ordered Sig/Ariel Route Start Time Stop Time Status Last Admin Dose Admin Cefepime HCl 50 ml @ 12.5 mls/hr Q12H IV 06/17/25 11:20 06/17/25 12:35 12.5 MLS/HR Exam Vital Signs Vital Signs Date Time Temp Pulse Resp B/P (MAP) Pulse Ox O2 Delivery O2 Flow Rate FiO2 06/17/25 13:00 74 10 136/76 (96) 96 06/17/25 09:57 Nasal Cannula* 3 32 06/17/25 09:57 97.7 97.7 General Appearance: Alert, Oriented X3, Cooperative, No acute distress HEENT: Atraumatic, Mucous membr. moist/pink Respiratory: Normal air movement Cardiovascular: Regular rate, Normal S1, Normal S2 Abdominal: Soft Neuro: Normal speech, Sensation intact Psych/Mental Status: Mental status NL, Mood NL Labs/Xrays Labs Test 06/17/25 12:42 06/17/25 10:30 06/17/25 10:19 Range/Units Lactic Acid Level 3.7 *H 0.4-2.0 mmol/L White Blood Count 12.5 H 4.4-10.8 10^3/uL Red Blood Count 4.85 4.5-5.90 10^6/uL Hemoglobin 14.1 13.5-17.5 g/dL Hematocrit 41.3 41.0-53.0 % Mean Corpuscular Volume 85.2 80.0-100.0 fL Mean Corpuscular Hemoglobin 29.1 28.0-32.0 pg Mean Corpuscular Hemoglobin Concent 34.2 32.0-36.0 g/dL Red Cell Distribution Width 16.0 H 11.8-14.3 % Platelet Count 174 140-450 10^3/uL Mean Platelet Volume 8.7 6.9-10.8 fL Neutrophils (%) (Auto) 86.7 H 37.0-80.0 % Lymphocytes (%) (Auto) 9.1 L 10.0-50.0 % Monocytes (%) (Auto) 3.9 0.0-12.0 % Eosinophils (%) (Auto) 0.2 0.0-7.0 % Basophils (%) (Auto) 0.1 0.0-2.0 % Neutrophils # (Auto) 10.8 H 1.6-8.6 10 ^3/uL Lymphocytes # (Auto) 1.1 0.4-5.4 10 ^3/uL Monocytes # (Auto) 0.5 0-1.3 10 ^3/uL Eosinophils # (Auto) 0 0-0.8 10 ^3/uL Basophils # (Auto) 0 0-0.2 10 ^3/uL Nucleated Red Blood Cells 0.0 % Prothrombin Time 11.8 9.3-11.8 sec Prothrombin Time INR 1.13 0.9-1.15 Activated Partial Thromboplast Time 27.3 24.5-34.5 SEC Sodium Level 126 L 136-145 mmol/L Potassium Level 3.0 L 3.5-5.1 mmol/L Chloride Level 82 L 98-107 mmol/L Carbon Dioxide Level 22 20-31 mmol/L Anion Gap 22 H 5-15 Blood Urea Nitrogen 38 H 9-23 mg/dL Creatinine 2.54 H 0.700-1.30 mg/dL Glomerular Filtration Rate Calc 28 >90 mL/min BUN/Creatinine Ratio 15.0 10.0-20.0 Serum Glucose 92 74-106 mg/dL Calcium Level 9.3 8.7-10.4 mg/dL Total Bilirubin 0.9 0.2-1.0 mg/dL Aspartate Amino Transferase (AST) 24 13-40 U/L Alanine Aminotransferase (ALT) 20 7-40 U/L Alkaline Phosphatase 125 H 46-116 U/L Total Protein 6.7 5.7-8.2 g/dL Albumin 3.7 3.2-4.8 g/dL Urine Color Yellow Yellow Urine Clarity Turbid H Clear Urine pH 5.5 5.0-9.0 Urine Specific [place] 1.023 1.001-1.035 Urine Protein 1+ H Negative Urine Ketones Trace Negative Urine Blood Negative Negative /uL Urine Nitrite Negative Negative Urine Bilirubin 1+ Negative Urine Urobilinogen 3 H Negative mg/dL Urine Leukocyte Esterase Negative Negative /uL Urine RBC 1 0 - 3 /hpf Urine Microscopic WBC 5 H 0-3 /HPF Urine Squamous Epithelial Cells Few <5 /hpf Urine Bacteria None seen None Seen /hpf Urine Hyaline Casts Few 0 - 2 /lpf Urine Mucus Few None Seen Urine Glucose Normal Normal mg/dL CHEST RADIOGRAPH Indication: sob Technique: Single frontal view of the chest was obtained COMPARISON: CT CT CHEST/AB/PL W CON- IV ONLY on DOS: 03/03/25 FINDINGS: Lines and Tubes: None Lungs: Clear Pleura: No effusion. No pneumothorax. Cardiomediastinal contours: Thoracic aorta stent in-situ. Bones: Unremarkable IMPRESSION: No acute disease. SEPSIS Sepsis Screen Date sepsis recognized/suspect: Jun 17, 2025 Time Sepsis recognized/suspect: 956 Recent Procedure: No On Antibiotic Therapy: Yes Respiratory Rate >20: No Heart Rate >90: Yes Temp<36 C (96.8 F) or >38.3 C: No SBP <90 or MAP <65 mmHG: No New Acute Mental Status Change: No Is the patient on CPAP, BIPAP,: No Physician Orders Chest Portable (06/17/25 10:19) Accucheck (06/17/25 10:19) Blood Culture (06/17/25 10:19) Notify Md If Map <65 Or Bp<90 (06/17/25 10:19) If Map<65 Start Vasopressor (06/17/25 10:19) Sepsis Reassesment After Fluid (06/17/25 11:19) Cefepime 1gm/50ml (Maxipime 1gm/50ml) (06/17/25 11:20) Vital Signs Date Time Temp Pulse Resp B/P (MAP) Pulse Ox O2 Delivery O2 Flow Rate FiO2 06/17/25 13:00 74 10 136/76 (96) 96 06/17/25 12:45 76 06/17/25 11:00 92 10 105/69 (81) 99 06/17/25 10:50 90 06/17/25 09:57 92 12 98 Nasal Cannula* 3 32 06/17/25 09:57 97.7 92 12 97/58 (71) 98 97.7 06/17/25 09:33 97.7 95 35 104/68 94 97.7 Laboratory Tests Test 06/17/25 10:30 06/17/25 12:42 Lactic Acid Level 4.3 mmol/L (0.4-2.0) *H 3.7 mmol/L (0.4-2.0) *H White Blood Count 12.5 10^3/uL (4.4-10.8) H Medications Medications Dose Ordered Sig/Ariel Route Start Time Stop Time Status Last Admin Dose Admin Cefepime HCl 50 ml @ 12.5 mls/hr Q12H IV 06/17/25 11:20 06/17/25 12:35 12.5 MLS/HR Lactated Ringer's 2,450 ml @ 2,450 mls/hr ONCE ONCE IV 06/17/25 10:30 06/17/25 11:29 DC 06/17/25 10:36 2,450 MLS/HR Sodium Chloride 1,000 ml @ 1,000 mls/hr Q1H ONCE IV 06/17/25 14:00 06/17/25 14:59 DC 06/17/25 15:59 1,000 MLS/HR Vancomycin HCl 250 ml @ 250 mls/hr ONCE ONCE IV 06/17/25 11:15 06/17/25 12:14 DC 06/17/25 11:28 250 MLS/HR Assessment/Plan Assessment/Plan Assessment Acute on chronic asthma exacerbation Leukocytosis unclear etiology Hyponatremia Hypokalemia TATE/CKD Lactic acidosis likely sepsis Septic shock Intractable diarrhea Autonomic imbalance Obesity History of left retina surgery History of mole removal on chest and shoulder History of removal of cyst on neck History of diabetes History of hypertension History of AAA repair History of tobacco use History of nephrolithiasis Plan Ad[place] [facility] [place] [facility] IV antibiotics-ceftriaxone Replete lytes Hemoglobin A1c ISS and Accu-Cheks D-dimer NS 1 L given in ED Vancomycin + cefepime given in ED LR given in ED Lactic level noted Blood cultures Chest x-ray noted UA PT/PTT EKG C diff stool Dietary consult Diet Home medications reconciled DVT prophylaxis-Lovenox PUD prophylaxis-PPIs Discussed plan of care with patient and nurse Nephrology consult Counseled patient on lifestyle modifications, diet, and exercise [id number] Preventive counseling healthy eating habits, physical activity, and reg ular checkups Plan discussed with: Patient Date of Service: Jun 17, 2025 Billing Provider: JEREMIAH GAMEZ Common Visit Codes: [id number] INP/OBS CARE (HIGH) Secondary Visit Codes: [id number] COUNSELING IND JEREMIAH GAMEZ Jun 17, 2025 16:57
[2025-06-17] MEDS ORDERED: DEXTROSE (50%) 50ML SYRG IV PRN (17:30)
[2025-06-17] MEDS: SUCRALFATE 1 GM TAB PO SCH (17:56)
[2025-06-17] MEDS: POTASSIUM CHL 20 Meq TABLET PO ONE (17:56)
[2025-06-17] MEDS: TAMSULOSIN HYDROCHLORIDE 0.4 MG CAP PO SCH (17:59)
[2025-06-17] MEDS: ALBUTEROL SULF 2.5 MG/0.5ML(0.5%) NEB SOLN NEB SCH (18:43)
[2025-06-17] MEDS: IPRATROPIUM BROM 0.5 MG/2.5ML INH SOL NEB SCH (18:43)
[2025-06-17] MEDS ORDERED: TERA5CAP42 PO (20:23)
[2025-06-17] MEDS ORDERED: CICL80AE2 INH (20:23)
[2025-06-17] MEDS ORDERED: BISO5TAB44 PO (20:23)
[2025-06-17] MEDS ORDERED: GABA-1250 PO (20:23)
[2025-06-17] MEDS ORDERED: ASPI-498 OR (20:23)
[2025-06-17] MEDS: ACCU-CHEK COMFORT CURVE STRIP VI SCH (21:32)
[2025-06-17] MEDS: InsuLIN REG 1unit/0.01ml Soln (100units/ml) SC SCH (21:37)
[2025-06-18] VITALS (17 sets, daily range): BP systolic 90–122; BP diastolic 50–68; PULSE 66–93; RESP 17–20; TEMP 96–98.1; O2SAT 91–100
[2025-06-18] MEDS: ONDANSETRON HCL 4 MG/2 ML VIAL IV PRN (00:37)
[2025-06-18] MEDS: ACETAMINOPHEN 325 MG TAB PO PRN (00:43)
[2025-06-18 05:21] LABS: Alanine Aminotransferase 16 U/L (7-40); Alkaline Phosphatase 99 U/L (46-116); Anion Gap 13 (5-15); BUN/Creatinine Ratio 11.8 (10.0-20.0); Blood Urea Nitrogen 21 mg/dL (9-23); Carbon Dioxide 25 mmol/L (20-31); Glucose 87 mg/dL (74-106); Total Protein 5.8 g/dL (5.7-8.2)
[2025-06-18 05:22] LABS: Albumin 3.1 g/dL (3.2-4.8); Bilirubin, Total 0.3 mg/dL (0.2-1.0); Calcium 8.5 mg/dL (8.7-10.4); Chloride 90 mmol/L (98-107); Potassium 2.9 mmol/L (3.5-5.1); Sodium 128 mmol/L (136-145)
[2025-06-18] MEDS: POTASSIUM EFFERVESENT TAB 25 MEQ PO ONE (05:53)
[2025-06-18 06:36] LABS: Hematocrit 37.8 % (41.0-53.0); Hemoglobin 12.6 g/dL (13.5-17.5); Mean Corpuscular Hemoglobin 30.3 pg (28.0-32.0); Mean Corpuscular Volume 91.1 fL (80.0-100.0); Nucleated Red Blood Cells % 0.3 %
[2025-06-18] MEDS: PANTOPRAZOLE 40 MG/10 ML VIAL INJ IV SCH (10:24)
[2025-06-18] MEDS: ENOXAPARIN SOD 40 MG/0.4 ML SYRINGE SC SCH (10:25)
--- NOTE | 2025-06-18 11:20 | DVHPN2 ---
Assessment/Plan Assessment/Plan progress note 59 M previous admission in [facility] for AAA repair, dc to post acute care, and home, but now back for acute resp failure seen today unstable for transfer physical exam obese aox4 mild wheezing s1 s2 rrr abdomen obese no le edema labs ekg imaging assessment and plan acute hypoxic RF asthma exacerbation pneumonia gp vs gn sepsis hyponatremia hypokalemia TATE VM on CKD syncope lactic acidosis (type 1 vs 2) normocytic anemia obesity HTN NIDDM hx of AAA repair dierrhea empiric ceft and doxy albuterol, ipratropium maintain spo2 >96% prednisone trend cr, K iv fluid send probnp echo lispro ISS follow cdif diet full liq dvt ppx lovenox full code crit care time 35 minutes Plan discussed with: Patient My Orders Orders - MARIA ELENA PEDROZA MD Procedure Category Date Status Time Complete Blood Count LAB 06/19/25 Verified 04:00 Comprehensive LAB 06/19/25 Verified Metabolic Panel 04:00 Magnesium LAB 06/19/25 Verified 04:00 Phosphorus LAB 06/19/25 Verified 04:00 B-Type Natriuretic LAB 06/18/25 Logged Peptide 11:15 Lactic Acid W/ Reflex LAB 06/18/25 Logged Order 11:15 Lactic Acid W/ Reflex LAB 06/19/25 Verified Order 04:00 Date of Service: Jun 18, 2025 Billing Provider: MARIA ELENA PEDROZA MD Common Visit Codes: [id number] CARE 30-74 MIN MARIA ELENA PEDROZA MD Jun 18, 2025 11:20
--- NOTE | 2025-06-18 14:17 | DVH ---
INDICATION: edward TECHNIQUE: Multiple real-time sonographic images of the kidneys and bladder were obtained. COMPARISON: None FINDINGS: The right kidney measures 11 cm in length, which is normal in size. There is normal echogen icity of the right kidney. No hydronephrosis. The left kidney measures 11 cm in length, which is normal in size. There is normal echogenicity of th e left kidney. No hydronephrosis. 5 left renal cyst. Bilateral nonobstructing renal calculi measuring 6 mm in the right upper pole and 7 mm in the left mi ddle pole. 5 cm left renal cyst. IMPRESSION: Nonobstructing bilateral renal calculi.
--- NOTE | 2025-06-18 15:24 | DVHINCON2 ---
Date of service: Jun 18, 2025 Referring Physician ALEC Ann Reason for Consultation TATE on CKD History of Present Illness 59-year-old male with history of CKD, HTN, type 2 diabetes, nephrolithiasis, asthma, BPH, urinary retention, AAA repair. Patient reports progressive bilateral lower extremity weakness and dyspnea since February 2025 after AAA repair. Patient also reports experiencing diarrhea, vomiting x 2 days. Upon admission patient presented with sodium of 126, potassium 3.0, BUN 32 creatinine 2.04, eGFR 29. On repeat labs 06/18/2025, sodium 128, potassium 2.9, BUN 21, creatinine 1.78, eGFR 43. Patient reports history of CKD, however does not recall last eGFR. Patient had admission in February 2025, eGFR at that time was 84.Patient denies NSAID use. Denies CP. Denies gross hematuria. Received con sult for TATE/CKD. Past Medical History CKD, HTN, type 2 diabetes, nephrolithiasis, asthma, BPH, urinary retention, AAA repair. Past Surgical History AAA repair Allergies: Coded Allergies: Bee Venom (Verified Allergy, Unknown, 03/03/25) Penicillins (Verified Allergy, Unknown, 03/03/25) Home Meds Reported Medications Terazosin Hcl (Terazosin Hcl) 5 Mg Cap, 5 MG PO for 30 Days, MG 06/17/25 Gabapentin (Gabapentin) 300 Mg Cap, 300 MG PO for 30 Days, MG 06/17/25 Aspirin (ASPIRIN 81) 81 Mg Tab, 81 MG OR, TAB 06/17/25 Bisoprolol Fumarate (Bisoprolol Fumarate) 5 Mg Tab, 1 TAB PO DAILY 06/17/25 Ciclesonide (Alvesco) 80 Mcg/Act Aer, INH 06/17/25 Sucralfate (Sucralfate) 1 Gm Tab, 1 TAB PO QID 06/17/25 Current Medications Current Medications Medications (Trade) Dose Ordered Sig/Ariel Route PRN Reason Start Time Stop Time Status Last Admin Enoxaparin Sodium (Lovenox) 40 mg DAILY SC 06/18/25 10:00 06/18/25 10:25 Pantoprazole Sodium (Protonix) 40 mg DAILY IV 06/18/25 10:00 06/18/25 10:24 Family History: Patient reports no known family medical history. Review of Systems 10 systems reviewed and negative except as per HPI. H&P Exam Vital Signs/I&O Vital Sign Date Time Temp Pulse Resp B/P (MAP) Pulse Ox O2 Delivery O2 Flow Rate FiO2 06/19/25 00:39 97.7 88 17 106/58 (74) 98 97.7 06/18/25 19:22 Nasal Cannula 2.5 06/18/25 19:22 28 Intake and Output 06/18/25 06/19/25 18:59 06:59 Intake Total 957 ml Output Total 900 ml Balance 57 ml Intake Oral 907 ml IV Total 50 ml Output Urine Total 900 ml Physical Exam Gen: Patient appears stated age, NAD. HEENT: PERRLA. Mucous membranes moist. Lungs: Bilateral air entry. No rales. CV: RRR, normal S1 and S2 Abd: Normoactive bowel sounds, soft, nontender, nondistended. Ext: No edema. Neuro: Alert and oriented x 4. Labs/Diagnostic Data Labs/Diagnostic Data Laboratory Tests Test 06/18/25 17:00 06/18/25 13:28 06/18/25 11:55 06/18/25 06:28 Range/Units Potassium Level 3.3 L 3.5-5.1 mmol/L B-Type Natriuretic Peptide 258.95 0-100 pg/mL Lactic Acid Level 1.4 0.4-2.0 mmol/L POC Glucose 96 70-106 mg/dl Test 06/18/25 05:46 06/18/25 04:33 06/17/25 21:35 06/17/25 17:24 Range/Units White Blood Count 10.5 4.4-10.8 10^3/uL Red Blood Count 4.15 L 4.5-5.90 10^6/uL Hemoglobin 12.6 L 13.5-17.5 g/dL Hematocrit 37.8 L 41.0-53.0 % Mean Corpuscular Volume 91.1 # 80.0-100.0 fL Mean Corpuscular Hemoglobin 30.3 28.0-32.0 pg Mean Corpuscular Hemoglobin Concent 33.3 32.0-36.0 g/dL Red Cell Distribution Width 16.7 H 11.8-14.3 % Platelet Count 177 140-450 10^3/uL Mean Platelet Volume 10.0 6.9-10.8 fL Neutrophils (%) (Auto) 71.5 37.0-80.0 % Lymphocytes (%) (Auto) 12.6 10.0-50.0 % Monocytes (%) (Auto) 10.8 0.0-12.0 % Eosinophils (%) (Auto) 4.2 0.0-7.0 % Basophils (%) (Auto) 0.9 0.0-2.0 % Neutrophils # (Auto) 7.5 1.6-8.6 10 ^3/uL Lymphocytes # (Auto) 1.3 0.4-5.4 10 ^3/uL Monocytes # (Auto) 1.1 0-1.3 10 ^3/uL Eosinophils # (Auto) 0.4 0-0.8 10 ^3/uL Basophils # (Auto) 0.1 0-0.2 10 ^3/uL Nucleated Red Blood Cells 0.3 % Sodium Level 128 L 136-145 mmol/L Potassium Level 2.9 L 3.5-5.1 mmol/L Chloride Level 90 L 98-107 mmol/L Carbon Dioxide Level 25 20-31 mmol/L Anion Gap 13 5-15 Blood Urea Nitrogen 21 # 9-23 mg/dL Creatinine 1.78 H 0.700-1.30 mg/dL Glomerular Filtration Rate Calc 43 >90 mL/min BUN/Creatinine Ratio 11.8 10.0-20.0 Serum Glucose 87 74-106 mg/dL Calcium Level 8.5 L 8.7-10.4 mg/dL Total Bilirubin 0.3 0.2-1.0 mg/dL Aspartate Amino Transferase (AST) 21 13-40 U/L Alanine Aminotransferase (ALT) 16 7-40 U/L Alkaline Phosphatase 99 46-116 U/L Total Protein 5.8 5.7-8.2 g/dL Albumin 3.1 L 3.2-4.8 g/dL POC Glucose 98 70-106 mg/dl D-Dimer, Quantitative 4.08 H 0.0-0.49 mg/L FEU Test 06/17/25 12:42 06/17/25 10:30 06/17/25 10:19 Range/Units Lactic Acid Level 3.7 *H 4.3 *H 0.4-2.0 mmol/L White Blood Count 12.5 H 4.4-10.8 10^3/uL Red Blood Count 4.85 4.5-5.90 10^6/uL Hemoglobin 14.1 13.5-17.5 g/dL Hematocrit 41.3 41.0-53.0 % Mean Corpuscular Volume 85.2 80.0-100.0 fL Mean Corpuscular Hemoglobin 29.1 28.0-32.0 pg Mean Corpuscular Hemoglobin Concent 34.2 32.0-36.0 g/dL Red Cell Distribution Width 16.0 H 11.8-14.3 % Platelet Count 174 140-450 10^3/uL Mean Platelet Volume 8.7 6.9-10.8 fL Neutrophils (%) (Auto) 86.7 H 37.0-80.0 % Lymphocytes (%) (Auto) 9.1 L 10.0-50.0 % Monocytes (%) (Auto) 3.9 0.0-12.0 % Eosinophils (%) (Auto) 0.2 0.0-7.0 % Basophils (%) (Auto) 0.1 0.0-2.0 % Neutrophils # (Auto) 10.8 H 1.6-8.6 10 ^3/uL Lymphocytes # (Auto) 1.1 0.4-5.4 10 ^3/uL Monocytes # (Auto) 0.5 0-1.3 10 ^3/uL Eosinophils # (Auto) 0 0-0.8 10 ^3/uL Basophils # (Auto) 0 0-0.2 10 ^3/uL Nucleated Red Blood Cells 0.0 % Prothrombin Time 11.8 9.3-11.8 sec Prothrombin Time INR 1.13 0.9-1.15 Activated Partial Thromboplast Time 27.3 24.5-34.5 SEC Sodium Level 126 L 136-145 mmol/L Potassium Level 3.0 L 3.5-5.1 mmol/L Chloride Level 82 L 98-107 mmol/L Carbon Dioxide Level 22 20-31 mmol/L Anion Gap 22 H 5-15 Blood Urea Nitrogen 38 H 9-23 mg/dL Creatinine 2.54 H 0.700-1.30 mg/dL Glomerular Filtration Rate Calc 28 >90 mL/min BUN/Creatinine Ratio 15.0 10.0-20.0 Serum Glucose 92 74-106 mg/dL Hemoglobin A1c 5.8 H <5.7 % A1C Calcium Level 9.3 8.7-10.4 mg/dL Total Bilirubin 0.9 0.2-1.0 mg/dL Aspartate Amino Transferase (AST) 24 13-40 U/L Alanine Aminotransferase (ALT) 20 7-40 U/L Alkaline Phosphatase 125 H 46-116 U/L Total Protein 6.7 5.7-8.2 g/dL Albumin 3.7 3.2-4.8 g/dL Urine Color Yellow Yellow Urine Clarity Turbid H Clear Urine pH 5.5 5.0-9.0 Urine Specific [place] 1.023 1.001-1.035 Urine Protein 1+ H Negative Urine Ketones Trace Negative Urine Blood Negative Negative /uL Urine Nitrite Negative Negative Urine Bilirubin 1+ Negative Urine Urobilinogen 3 H Negative mg/dL Urine Leukocyte Esterase Negative Negative /uL Urine RBC 1 0 - 3 /hpf Urine Microscopic WBC 5 H 0-3 /HPF Urine Squamous Epithelial Cells Few <5 /hpf Urine Bacteria None seen None Seen /hpf Urine Hyaline Casts Few 0 - 2 /lpf Urine Mucus Few None Seen Urine Glucose Normal Normal mg/dL Plan/Recommendation IMP 1. TATE hemodynamically mediated-volume depleted, recent contrast 2. Hx of CKD stage 2 last known eGFR 84 on February 2025 during last hospital admission 3. Hyponatremia- Na 128 4. Hypokalemia- Na 2.9 5. HTN 6. Type 2 DM 7. Acute hypoxic respiratory failure 8. PNA 9. s/p AAA repair February 2025 10. Nephrolithiasis Renal ultrasound impression: Nonobstructing bilateral renal calculi. REC - Serial chemistry panels - Will check phosphorus, uric acid, CBC with differential, UA, urine sodium, urine creatinine, renal ultrasound - IVF NS x 1 L - Potassium supplementation as needed - Strict I&Os - Consider urology eval - Avoidance of RAAS inhibitors, contrast studies if able during time course of TATE - Avoidance of NSAIDs - We will continue to follow Thank you for the consultation Plan discussed with: Patient EVELIO AU FACILITY PLANNER Jun 18, 2025 15:24
[2025-06-18] MEDS: SODIUM CHLORIDE 0.9% 1,000 ML IV ONE (17:45)
[2025-06-18] MEDS: POTASSIUM CHL 20 Meq TABLET PO ONE (23:40)
[2025-06-19] VITALS (18 sets, daily range): BP systolic 97–115; BP diastolic 56–77; PULSE 66–91; RESP 16–20; TEMP 97.5–98.9; O2SAT 96–100
[2025-06-19] MEDS: HYDROcodone-ACET 5/325MG TAB PO ONE (09:01)
[2025-06-19 10:37] LABS: Hematocrit 34.7 % (41.0-53.0); Hemoglobin 11.7 g/dL (13.5-17.5); Mean Corpuscular Hemoglobin 29.3 pg (28.0-32.0); Mean Corpuscular Volume 86.6 fL (80.0-100.0); Nucleated Red Blood Cells % 0.1 %
[2025-06-19 11:11] LABS: Alanine Aminotransferase 15 U/L (7-40); Alkaline Phosphatase 81 U/L (46-116); Anion Gap 9 (5-15); BUN/Creatinine Ratio 14.2 (10.0-20.0); Blood Urea Nitrogen 17 mg/dL (9-23); Carbon Dioxide 26 mmol/L (20-31); Uric Acid 8.1 mg/dL (3.7-9.2)
[2025-06-19 11:13] LABS: Albumin 3.1 g/dL (3.2-4.8); Bilirubin, Total 0.3 mg/dL (0.2-1.0); Calcium 8.0 mg/dL (8.7-10.4); Chloride 95 mmol/L (98-107); Glucose 120 mg/dL (74-106); Magnesium 1.5 mg/dL (1.6-2.6); Potassium 3.3 mmol/L (3.5-5.1); Sodium 130 mmol/L (136-145); Total Protein 5.4 g/dL (5.7-8.2)
--- NOTE | 2025-06-19 13:29 | DVHPN2 ---
Assessment/Plan Assessment/Plan progress note 59 M previous admission in [facility] for AAA repair, dc to post acute care, and home, but now back for acute resp failure seen today stable for transfer, GNR in blood, pending sens. no more diarrhea physical exam obese aox4 mild wheezing s1 s2 rrr abdomen obese no le edema labs ekg imaging assessment and plan acute hypoxic RF asthma exacerbation pneumonia gp vs gn sepsis GNR bacteremia hyponatremia hypokalemia TATE VM on CKD syncope lactic acidosis (type 1 vs 2) normocytic anemia obesity HTN NIDDM hx of AAA repair dierrhea nonobs nephrolith empiric ceft and doxy albuterol, ipratropium maintain spo2 >96% prednisone trend cr, K iv fluid send probnp echo lispro ISS follow cdif diet diabetic dvt ppx lovenox full code Plan discussed with: Patient My Orders Orders - MARIA ELENA PEDROZA MD Procedure Category Date Status Time Cleanse Wound With HARMAN 06/18/25 In Process Wound Clean 10:57 Date of Service: Jun 19, 2025 Billing Provider: MARIA ELENA PEDROZA MD Common Visit Codes: [id number] INP/OBS CARE(HIGH) MARIA ELENA PEDROZA MD Jun 19, 2025 13:29
[2025-06-19] MEDS: POTASSIUM CHL 20 Meq TABLET PO ONE (14:08)
[2025-06-19] MEDS: MAGNESIUM SULFATE 1GM/100ML 100 ML IV SCH (15:00)
--- NOTE | 2025-06-19 16:03 | DVHPN2 ---
Progress Note Date Seen: Jun 19, 2025 Medical Necessity Reason Pt with a Central, PICC or Fol: No Subjective Patient reports: No new complaints, Feels better Objective vital signs Vital Sign Date Time Temp Pulse Resp B/P (MAP) Pulse Ox O2 Delivery O2 Flow Rate FiO2 06/19/25 14:35 81 18 98 06/19/25 12:56 97.9 109/63 (78) 97.9 06/19/25 10:00 Nasal Cannula* 3 32 Total Intake and Output 06/18/25 06/18/25 06/19/25 15:00 23:00 07:00 Intake Total 50 ml 907 ml 600 ml Output Total 900 ml 500 ml Balance 50 ml 7 ml 100 ml medications Current Medications Medications Dose Ordered Sig/Ariel Route Start Time Stop Time Status Last Admin Dose Admin Ceftriaxone Sodium 50 ml @ 100 mls/hr DAILY@09 IV 06/17/25 16:45 06/19/25 08:58 100 MLS/HR Ondansetron HCl 4 mg Q4HP PRN IV 06/17/25 16:45 06/19/25 01:21 4 MG Enoxaparin Sodium 40 mg DAILY SC 06/18/25 10:00 06/19/25 08:59 40 MG Acetaminophen 650 mg Q6HP PRN PO 06/17/25 16:45 06/18/25 20:50 650 MG Sucralfate 1 gm QID PO 06/17/25 18:00 06/19/25 11:48 1 GM Pantoprazole Sodium 40 mg DAILY IV 06/18/25 10:00 06/19/25 08:59 40 MG Albuterol 2.5 mg Q4HWA NEB 06/17/25 18:00 06/19/25 14:35 2.5 MG Ipratropium [place] 0.5 mg Q4HWA NEB 06/17/25 18:00 06/19/25 14:35 0.5 MG Tamsulosin HCl 0.4 mg QPM PO 06/17/25 18:00 06/18/25 17:39 0.4 MG Diagnostic Test (Pha) 1 strip ACHS 06/17/25 22:00 06/19/25 11:47 1 STRIP Dextrose 50 ml UD PRN IV 06/17/25 17:30 Acetaminophen/ Hydrocodone Bitart 1 tab Q8HPRN PRN PO 06/19/25 13:30 Examination Gen: Patient appears stated age, NAD. Lungs: Bilateral air entry. No rales. CV: RRR, normal S1 and S2 Ext: No edema. Neuro: Alert and oriented x 4. laboratory and microbiology Laboratory Tests 06/19/25 09:56 Test 06/19/25 09:56 Range/Units Serum Glucose 120 H 74-106 mg/dL Microbiology Date/Time Source Procedure Growth Status 06/17/25 10:30 Blood Blood Culture - Preliminary NO GROWTH AFTER 48 HOURS OF INCUBATION. Resulted Labs and/or images reviewed: Labs reviewed by me Problem List/Assessment/Plan Problem List/Assessment/Plan IMP 1. TATE hemodynamically mediated-volume depleted- improving 2. Hx of CKD stage 2 last known eGFR 84 on February 2025 during last hospital admission 3. Hyponatremia- improving Na 130 4. Hypokalemia- ongoing 5. hx of HTN 6. Type 2 DM 7. Acute hypoxic respiratory failure 8. PNA 9. s/p AAA repair February 2025 10. Nephrolithiasis Renal ultrasound impression: Nonobstructing bilateral renal calculi. REC - Continued improvement in kidney function with an eGFR of 70, downtrending creat 1.20 - BMP in am - Potassium supplementation as needed - Strict I&Os - Consider urology eval can be outpt - Avoidance of RAAS inhibitors, contrast studies if able during time course of TATE - Avoidance of NSAIDs - We will continue to follow Plan discussed with: Patient Dietary Evaluation Review Comments: Nutrition Recommendation 1) Consider NCS + cardiac diet 2) Refer Bottle And Glass Inspector for weight management 3) Monitor PO intake, lab values, weight trend, and I/O Expected Outcomes/Goals: To meet >75% estimated needs Lab values to improve Fu 3-5 days EVELIO AU Jun 19, 2025 16:03
[2025-06-19] MEDS: HYDROcodone-ACET 5/325MG TAB PO PRN (17:59)
--- NOTE | 2025-06-19 21:57 | DVHDS2 ---
Discharge Summary Date of Admission Jun 17, 2025 at 16:40 Date of Discharge: Jun 19, 2025 Labs/Diagnostic Data: Laboratory Results Test 06/19/25 11:37 06/19/25 09:56 06/18/25 13:28 06/17/25 17:24 POC Glucose 118 mg/dl (70-106) White Blood Count 7.6 10^3/uL (4.4-10.8) Red Blood Count 4.01 10^6/uL (4.5-5.90) Hemoglobin 11.7 g/dL (13.5-17.5) Hematocrit 34.7 % (41.0-53.0) Mean Corpuscular Volume 86.6 fL (80.0-100.0) Mean Corpuscular Hemoglobin 29.3 pg (28.0-32.0) Mean Corpuscular Hemoglobin Concent 33.8 g/dL (32.0-36.0) Red Cell Distribution Width 16.4 % (11.8-14.3) Platelet Count 143 10^3/uL (140-450) Mean Platelet Volume 8.9 fL (6.9-10.8) Neutrophils (%) (Auto) 77.2 % (37.0-80.0) Lymphocytes (%) (Auto) 15.5 % (10.0-50.0) Monocytes (%) (Auto) 4.9 % (0.0-12.0) Eosinophils (%) (Auto) 2.0 % (0.0-7.0) Basophils (%) (Auto) 0.4 % (0.0-2.0) Neutrophils # (Auto) 5.8 10 ^3/uL (1.6-8.6) Lymphocytes # (Auto) 1.2 10 ^3/uL (0.4-5.4) Monocytes # (Auto) 0.4 10 ^3/uL (0-1.3) Eosinophils # (Auto) 0.2 10 ^3/uL (0-0.8) Basophils # (Auto) 0 10 ^3/uL (0-0.2) Nucleated Red Blood Cells 0.1 % Sodium Level 130 mmol/L (136-145) Potassium Level 3.3 mmol/L (3.5-5.1) Chloride Level 95 mmol/L (98-107) Carbon Dioxide Level 26 mmol/L (20-31) Anion Gap 9 (5-15) Blood Urea Nitrogen 17 mg/dL (9-23) Creatinine 1.20 mg/dL (0.700-1.30) Glomerular Filtration Rate Calc 70 mL/min (>90) BUN/Creatinine Ratio 14.2 (10.0-20.0) Serum Glucose 120 mg/dL (74-106) Lactic Acid Level 1.3 mmol/L (0.4-2.0) Uric Acid 8.1 mg/dL (3.7-9.2) Calcium Level 8.0 mg/dL (8.7-10.4) Phosphorus Level 1.6 mg/dL (2.4-5.1) Magnesium Level 1.5 mg/dL (1.6-2.6) Total Bilirubin 0.3 mg/dL (0.2-1.0) Aspartate Amino Transferase (AST) 14 U/L (13-40) Alanine Aminotransferase (ALT) 15 U/L (7-40) Alkaline Phosphatase 81 U/L (46-116) Total Protein 5.4 g/dL (5.7-8.2) Albumin 3.1 g/dL (3.2-4.8) B-Type Natriuretic Peptide 258.95 pg/mL (0-100) D-Dimer, Quantitative 4.08 mg/L FEU (0.0-0.49) Test 06/17/25 10:30 06/17/25 10:19 Prothrombin Time 11.8 sec (9.3-11.8) Prothrombin Time INR 1.13 (0.9-1.15) Activated Partial Thromboplast Time 27.3 SEC (24.5-34.5) Hemoglobin A1c 5.8 % A1C (<5.7) Urine Color Yellow (Yellow) Urine Clarity Turbid (Clear) Urine pH 5.5 (5.0-9.0) Urine Specific [place] 1.023 (1.001-1.035) Urine Protein 1+ (Negative) Urine Ketones Trace (Negative) Urine Blood Negative /uL (Negative) Urine Nitrite Negative (Negative) Urine Bilirubin 1+ (Negative) Urine Urobilinogen 3 mg/dL (Negative) Urine Leukocyte Esterase Negative /uL (Negative) Urine RBC 1 /hpf (0 - 3) Urine Microscopic WBC 5 /HPF (0-3) Urine Squamous Epithelial Cells Few /hpf (<5) Urine Bacteria None seen /hpf (None Seen) Urine Hyaline Casts Few /lpf (0 - 2) Urine Mucus Few (None Seen) Urine Glucose Normal mg/dL (Normal) Other Laboratory Tests 06/19/25 09:56 Brief Hx & Hospital Course: 59 M previous admission in [facility] for AAA repair, dc to post acute care, and home, but now back for acute resp failure. treated with ivf, steroid and empiric abx coverage and breathing treatment. found to have GNR in 1 bcx. seen by renal. stable to transfer to [place]. pt also will req PT. Condition at Discharge: Stable Final Diagnosis/Problems List acute hypoxic RF asthma exacerbation pneumonia gp vs gn sepsis GNR bacteremia hyponatremia hypokalemia TATE VM on CKD syncope lactic acidosis (type 1 vs 2) normocytic anemia obesity HTN NIDDM hx of AAA repair dierrhea nonobs nephrolith Discharge Disposition: Acute Care Facility Discharge Instruct/Medications Scheduled Bisoprolol Fumarate (Bisoprolol Fumarate), 1 TAB PO DAILY, (Reported) Sucralfate (Sucralfate), 1 TAB PO QID, (Reported) Miscellaneous Medications Aspirin (Aspirin 81), 81 MG OR, (Reported) Ciclesonide (Alvesco), INH, (Reported) Gabapentin (Gabapentin), 300 MG PO, (Reported) Terazosin Hcl (Terazosin Hcl), 5 MG PO, (Reported) Discharge Statement: "Patient was advised to return to the ER or call 911 if any headaches, dizziness, shortness of breath, chest pain, abdominal pain, bleeding, fevers, or worsening of medical condition. Patient was counseled about treatment plan, medications, possible side effects, patientverbalized understanding. All questions were answered to the best of my ability. This discharge took greater then 30 minutes in planning, reviewing documentation, counseling the patient, and discussing with other team members." ASSESSMENT ASSESSMENT Assessment Date of Service: Jun 19, 2025 Billing Provider: MAIRA ELENA PEDROZA MD Common Visit Codes: [id number] DISCH DAY >30min MARIA ELENA PEDROZA MD Jun 19, 2025 21:57
[2025-06-20] VITALS (15 sets, daily range): BP systolic 101–118; BP diastolic 62–78; PULSE 61–102; RESP 14–20; TEMP 36.7; O2SAT 95–100
[2025-06-20 11:13] LABS: Potassium 3.6 mmol/L (3.5-5.1)
[2025-06-20 11:14] LABS: Anion Gap 9 (5-15); Carbon Dioxide 27 mmol/L (20-31)
[2025-06-20 11:20] LABS: BUN/Creatinine Ratio 10.2 (10.0-20.0); Blood Urea Nitrogen 10 mg/dL (9-23); Calcium 8.2 mg/dL (8.7-10.4); Chloride 95 mmol/L (98-107); Glucose 88 mg/dL (74-106); Sodium 131 mmol/L (136-145)
--- NOTE | 2025-06-20 15:26 | DVHPN2 ---
Progress Note Date Seen: Jun 20, 2025 Medical Necessity Reason Pt with a Central, PICC or Fol: No Subjective Review of Systems Awaiting d/c to [facility] Patient reports: No new complaints Objective vital signs Vital Sign Date Time Temp Pulse Resp B/P (MAP) Pulse Ox O2 Delivery O2 Flow Rate FiO2 06/20/25 13:16 92 18 100 06/20/25 13:10 Nasal Cannula 2.0 06/20/25 13:10 28 06/20/25 13:00 97.8 101/62 (75) 97.8 Total Intake and Output 06/19/25 06/19/25 06/20/25 15:00 23:00 07:00 Intake Total 500 ml 1040 ml 400 ml Output Total 1000 ml 650 ml Balance 500 ml 40 ml -250 ml medications Current Medications Medications Dose Ordered Sig/Ariel Route Start Time Stop Time Status Last Admin Dose Admin Ceftriaxone Sodium 50 ml @ 100 mls/hr DAILY@09 IV 06/17/25 16:45 06/20/25 09:43 100 MLS/HR Ondansetron HCl 4 mg Q4HP PRN IV 06/17/25 16:45 06/19/25 01:21 4 MG Enoxaparin Sodium 40 mg DAILY SC 06/18/25 10:00 06/20/25 09:43 40 MG Acetaminophen 650 mg Q6HP PRN PO 06/17/25 16:45 06/18/25 20:50 650 MG Sucralfate 1 gm QID PO 06/17/25 18:00 06/20/25 12:32 1 GM Pantoprazole Sodium 40 mg DAILY IV 06/18/25 10:00 06/20/25 09:43 40 MG Albuterol 2.5 mg Q4HWA NEB 06/17/25 18:00 06/20/25 13:10 2.5 MG Ipratropium [place] 0.5 mg Q4HWA NEB 06/17/25 18:00 06/20/25 13:10 0.5 MG Tamsulosin HCl 0.4 mg QPM PO 06/17/25 18:00 06/19/25 17:30 0.4 MG Diagnostic Test (Pha) 1 strip ACHS 06/17/25 22:00 06/20/25 11:48 1 STRIP Dextrose 50 ml UD PRN IV 06/17/25 17:30 Acetaminophen/ Hydrocodone Bitart 1 tab Q8HPRN PRN PO 06/19/25 13:30 06/19/25 17:59 1 TAB Examination Gen: Patient appears stated age, NAD. Lungs: Bilateral air entry. No rales. CV: RRR, normal S1 and S2 Ext: No edema. Neuro: Alert and oriented x 4. laboratory and microbiology Laboratory Tests 06/20/25 09:52 06/19/25 09:56 Test 06/20/25 09:52 Range/Units Serum Glucose 88 74-106 mg/dL Microbiology Date/Time Source Procedure Growth Status 06/17/25 10:30 Blood Blood Culture - Preliminary NO GROWTH AFTER 72 HOURS OF INCUBATION. Resulted Labs and/or images reviewed: Labs reviewed by me Problem List/Assessment/Plan Problem List/Assessment/Plan IMP 1. TATE hemodynamically mediated-volume depleted- improving 2. Hx of CKD stage 2 last known eGFR 84 on February 2025 during last hospital admission 3. Hyponatremia- improving Na 130 4. Hypokalemia- ongoing 5. hx of HTN 6. Type 2 DM 7. Acute hypoxic respiratory failure 8. PNA 9. s/p AAA repair February 2025 10. Nephrolithiasis Renal ultrasound impression: Nonobstructing bilateral renal calculi. REC - Continued improvement in kidney function with an eGFR of 88 - Strict I&Os - Consider urology eval can be outpt - Avoidance of RAAS inhibitors, contrast studies if able during time course of TATE - Avoidance of NSAIDs - We will sign off , as eGFR has now returned to last known eGFR from February 2025. Plan discussed with: Patient Dietary Evaluation Review Comments: Nutrition Recommendation 1) Consider NCS + cardiac diet 2) Refer Railroad Repairer for weight management 3) Monitor PO intake, lab values, weight trend, and I/O Expected Outcomes/Goals: To meet >75% estimated needs Lab values to improve Fu 3-5 days EVELIO AU Jun 20, 2025 15:26
--- NOTE | 2025-06-20 16:03 | DVHPN2 ---
Assessment/Plan Assessment/Plan progress note 59 M previous admission in [facility] for AAA repair, dc to post acute care, and home, but now back for acute resp failure seen today stable for transfer, improved, needs pt, c/w iv abx. pending sens physical exam obese aox4 mild wheezing s1 s2 rrr abdomen obese no le edema labs ekg imaging assessment and plan acute hypoxic RF asthma exacerbation pneumonia gp vs gn sepsis GNR bacteremia hyponatremia hypokalemia TATE VM on CKD syncope lactic acidosis (type 1 vs 2) normocytic anemia obesity HTN NIDDM hx of AAA repair dierrhea nonobs nephrolith empiric ceft and doxy albuterol, ipratropium maintain spo2 >96% prednisone trend cr, K iv fluid send probnp echo lispro ISS follow cdif diet diabetic dvt ppx lovenox full code Plan discussed with: Patient My Orders Orders - MARIA ELENA PEDROZA MD Procedure Category Date Status Time Discharge DISCHARGE 06/19/25 Transmitted 21:55 * Sugar Trucker CONS 06/20/25 Transmitted Consult Date of Service: Jun 20, 2025 Billing Provider: MARIA ELENA PEDROZA MD Common Visit Codes: [id number] INP/OBS CARE(HIGH) MARIA ELENA PEDROZA MD Jun 20, 2025 16:03
== END 2025-06-20 19:13 | disposition short-term general hospital (02) | DRG 871 ==
LOC: EDBD 09:22 → ER 09:22 → EDUNIT# 09:22 → OVERFLOW 16:40 → EAST 18:26
PROVIDERS: ADMIT Student in an Organized Health Care Education/Training Program; ATTEND Student in an Organized Health Care Education/Training Program
DX: A41.9 Sepsis, unspecified organism (principal); J15.69 Pneumonia due to other Gram-negative bacteria; J96.01 Acute respiratory failure with hypoxia; N17.0 Acute kidney failure with tubular necrosis; R65.21 Severe sepsis with septic shock; J15.9 Unspecified bacterial pneumonia; E87.1 Hypo-osmolality and hyponatremia; E87.20 Acidosis, unspecified; J45.901 Unspecified asthma with (acute) exacerbation; E66.9 Obesity, unspecified; E87.6 Hypokalemia; G90.89 Other disorders of autonomic nervous system; D64.9 Anemia, unspecified; I12.9 Hypertensive chronic kidney disease with stage 1 through stage 4 chronic kidney disease, or unspecified chronic kidney disease; E11.22 Type 2 diabetes mellitus with diabetic chronic kidney disease; N18.2 Chronic kidney disease, stage 2 (mild); R55 Syncope and collapse; N40.0 Benign prostatic hyperplasia without lower urinary tract symptoms; Z86.79 Personal history of other diseases of the circulatory system; Z87.891 Personal history of nicotine dependence; Z88.0 Allergy status to penicillin; Z91.030 Bee allergy status; Z87.442 Personal history of urinary calculi; Z80.9 Family history of malignant neoplasm, unspecified; Z68.39 Body mass index [BMI] 39.0-39.9, adult; Z79.84 Long term (current) use of oral hypoglycemic drugs
CPT/HCPCS: 36415; 71045; 76775; 80048; 80053; 81001; 82962; 83036; 83605; 83735; 83880; 84100; 84132; 84550; 85025; 85379; 85610; 85730; 87040; 93005; 94640; 96361; 96365; 96367; 99291; 99292; G0378; J2405; J2470

== ENCOUNTER 2025-07-31 14:47 | Emergency (ER) | payer OTHER ==
[~2025-07-31] VITALS: Ht 185.4 cm; Wt 141.0 kg
[~2025-07-31 14:47] MED LIST: ASPI-498 OR; BISO5TAB44 PO; CICL80AE2 INH; GABA-1250 PO; SUCR1TAB PO; TERA5CAP42 PO
[2025-07-31 15:31] LABS: Hematocrit 37.9 % (41.0-53.0); Hemoglobin 12.9 g/dL (13.5-17.5); Mean Corpuscular Hemoglobin 31.1 pg (28.0-32.0); Mean Corpuscular Volume 91.4 fL (80.0-100.0); Nucleated Red Blood Cells % 0.1 %
--- NOTE | 2025-07-31 15:39 | ED.PDOC ---
Chief Complaint: Chest Pain Allergies: Coded Allergies: Bee Venom (Verified Allergy, Unknown, 03/03/25) Penicillins (Verified Allergy, Unknown, 03/03/25) Home Meds Reported Medications Terazosin Hcl (Terazosin Hcl) 5 Mg Cap, 5 MG PO for 30 Days, MG 06/17/25 Gabapentin (Gabapentin) 300 Mg Cap, 300 MG PO for 30 Days, MG 06/17/25 Aspirin (ASPIRIN 81) 81 Mg Tab, 81 MG OR, TAB 06/17/25 Bisoprolol Fumarate (Bisoprolol Fumarate) 5 Mg Tab, 1 TAB PO DAILY 06/17/25 Ciclesonide (Alvesco) 80 Mcg/Act Aer, INH 06/17/25 Sucralfate (Sucralfate) 1 Gm Tab, 1 TAB PO QID 06/17/25 Mode of Arrival: EMS Past Medical History PAST MEDICAL HISTORY: Asthma, DM, HTN Family History Family History: Unknown Social History Smoker: Quit Greater Than 1 Year Alcohol: Sober Drugs: Denies Drug Use Lives In: Home X-Ray, Labs, Meds, VS Vital Signs Date Time Temp Pulse Resp B/P (MAP) Pulse Ox O2 Delivery O2 Flow Rate FiO2 07/31/25 15:30 98.6 106 18 106/66 98 98.6 07/31/25 14:49 88 Lab Test 07/31/25 15:48 07/31/25 14:55 Range/Units Troponin I High Sensitivity Pending 10 </=54 ng/L White Blood Count 8.5 4.4-10.8 10^3/uL Red Blood Count 4.14 L 4.5-5.90 10^6/uL Hemoglobin 12.9 L 13.5-17.5 g/dL Hematocrit 37.9 L 41.0-53.0 % Mean Corpuscular Volume 91.4 80.0-100.0 fL Mean Corpuscular Hemoglobin 31.1 28.0-32.0 pg Mean Corpuscular Hemoglobin Concent 34.0 32.0-36.0 g/dL Red Cell Distribution Width 17.7 H 11.8-14.3 % Platelet Count 520 H 140-450 10^3/uL Mean Platelet Volume 7.8 6.9-10.8 fL Neutrophils (%) (Auto) 72.0 37.0-80.0 % Lymphocytes (%) (Auto) 18.0 10.0-50.0 % Monocytes (%) (Auto) 8.3 0.0-12.0 % Eosinophils (%) (Auto) 0.7 0.0-7.0 % Basophils (%) (Auto) 1.0 0.0-2.0 % Neutrophils # (Auto) 6.1 1.6-8.6 10 ^3/uL Lymphocytes # (Auto) 1.5 0.4-5.4 10 ^3/uL Monocytes # (Auto) 0.7 0-1.3 10 ^3/uL Eosinophils # (Auto) 0.1 0-0.8 10 ^3/uL Basophils # (Auto) 0.1 0-0.2 10 ^3/uL Nucleated Red Blood Cells 0.1 % Sodium Level 137 136-145 mmol/L Potassium Level 3.9 3.5-5.1 mmol/L Chloride Level 103 98-107 mmol/L Carbon Dioxide Level 19 L 20-31 mmol/L Anion Gap 15 5-15 Blood Urea Nitrogen 12 9-23 mg/dL Creatinine 1.33 H 0.700-1.30 mg/dL Glomerular Filtration Rate Calc 62 >90 mL/min BUN/Creatinine Ratio 9.0 L 10.0-20.0 Serum Glucose 120 H 74-106 mg/dL Calcium Level 9.0 8.7-10.4 mg/dL Total Bilirubin 0.5 0.2-1.0 mg/dL Aspartate Amino Transferase (AST) 21 13-40 U/L Alanine Aminotransferase (ALT) 15 7-40 U/L Alkaline Phosphatase 106 46-116 U/L Total Protein 6.5 5.7-8.2 g/dL Albumin 3.8 3.2-4.8 g/dL SEPSIS Sepsis Screen Date sepsis recognized/suspect: Jul 31, 2025 Time Sepsis recognized/suspect: 145 Recent Procedure: No On Antibiotic Therapy: No Respiratory Rate >20: No Heart Rate >90: Yes Temp<36 C (96.8 F) or >38.3 C: No SBP <90 or MAP <65 mmHG: No New Acute Mental Status Change: No Is the patient on CPAP, BIPAP,: No Physician Orders Urinalysis (07/31/25 15:07) Electrocardigram (07/31/25 15:11) Chest Two Views Routine (07/31/25 15:11) Troponin-I Hs (07/31/25 16:11) Troponin-I Hs (07/31/25 18:11) Electrocardigram (07/31/25 16:11) Electrocardigram (07/31/25 18:11) Vital Signs Date Time Temp Pulse Resp B/P (MAP) Pulse Ox O2 Delivery O2 Flow Rate FiO2 07/31/25 15:30 98.6 106 18 106/66 98 98.6 07/31/25 14:49 88 Laboratory Tests Test 07/31/25 14:55 White Blood Count 8.5 10^3/uL (4.4-10.8) I personally scribed for TORRES GONSALVES MD ([email or web address]) on 07/31/25 at 15:39. Electronically submitted by Susana Llanos ([facility]). I personally scribed for TORRES GONSALVES MD ([email or web address]) on 07/31/25 at 16:04. Electronically submitted by Susana Llanos ([facility]). TORRES GONSALVES MD Jul 31, 2025 15:39
[2025-07-31 15:42] LABS: Alanine Aminotransferase 15 U/L (7-40); Albumin 3.8 g/dL (3.2-4.8); Alkaline Phosphatase 106 U/L (46-116); Anion Gap 15 (5-15); BUN/Creatinine Ratio 9.0 (10.0-20.0); Bilirubin, Total 0.5 mg/dL (0.2-1.0); Blood Urea Nitrogen 12 mg/dL (9-23); Calcium 9.0 mg/dL (8.7-10.4); Carbon Dioxide 19 mmol/L (20-31); Chloride 103 mmol/L (98-107); Glucose 120 mg/dL (74-106); Potassium 3.9 mmol/L (3.5-5.1); Sodium 137 mmol/L (136-145); Total Protein 6.5 g/dL (5.7-8.2)
--- NOTE | 2025-07-31 16:05 | ED.PDOC ---
History of Present Illness HPI Comments 59 y.o male presents to the ED via EMS for a chief complaint of generalized weakness associated with near syncopal today. Patient has been residing in a hotel s/p sepsis and partial bowel obstruction dx one month ago as he states living alone and having limited access to get around, feeling safer to be around people in case of emergencies. Patient states for the past month has become weaker as days go by, states when he gets up he feels better but is only able to ambulate short distance before feeling faint. He states multiple near syncopes earlier today with no LOC or falls noted. He ambulates with a walker. Give his recent abdomen dx, he mentions since his d/c, whatever he drinks or eats, his abdomen feels hard/distended and develops pain in instances where he wont eat or drink anything for a full day due to exacerbating symptoms. He also mentions having diarrhea x 1 month with no blood in stool. He denies any chest pain, fever, chills, recent cold, cough or runny nose. At bedside, patient's BP read 96/61 with a repeat of 120/72. He received IV fluids by EMS prior to ED arrival. Chief Complaint: Chest Pain Time Seen by MD: 15:55 Reviewed Notes: Medications, Allergies Allergies: Coded Allergies: Bee Venom (Verified Allergy, Unknown, 03/03/25) Penicillins (Verified Allergy, Unknown, 03/03/25) Home Meds Reported Medications Terazosin Hcl (Terazosin Hcl) 5 Mg Cap, 5 MG PO for 30 Days, MG 06/17/25 Gabapentin (Gabapentin) 300 Mg Cap, 300 MG PO for 30 Days, MG 06/17/25 Aspirin (ASPIRIN 81) 81 Mg Tab, 81 MG OR, TAB 06/17/25 Bisoprolol Fumarate (Bisoprolol Fumarate) 5 Mg Tab, 1 TAB PO DAILY 06/17/25 Ciclesonide (Alvesco) 80 Mcg/Act Aer, INH 06/17/25 Sucralfate (Sucralfate) 1 Gm Tab, 1 TAB PO QID 06/17/25 Information Source: Patient Mode of Arrival: EMS Severity: Moderate Timing: Hours Duration: Since onset Prehospital treatment: 12 Lead EKG, Rim Turning Finisher, IVF Past Medical History PAST MEDICAL HISTORY: Asthma, DM, HTN Surgical History: PTCA Family History Family History: Unknown Social History Smoker: Quit Greater Than 1 Year Alcohol: Sober Drugs: Denies Drug Use Lives In: Home Constitutional: reports: weakness; denies: chills, diaphoresis, fatigue, fever, malaise, sweats, others EENTM: denies: blurred vision, double vision, ear bleeding, ear discharge, ear drainage, ear pain, ear ringing, eye pain, eye redness, hearing loss, mouth pain, mouth swelling, nasal discharge, nose bleeding, nose congestion, nose pain, photophobia, tearing, throat pain, throat swelling, voice changes, others Respiratory: denies: cough, hemoptysis, orthopnea, SOB at rest, shortness of breath, SOB with excertion, stridor, wheezing, others Cardiovascular: denies: chest pain, dizzy spells, diaphoresis, Dyspnea on exertion, edema, irregular heart beat, left arm pain, lightheadedness, palpitations, PND, syncope, others Gastrointestinal: denies: abdomen distended, abdominal pain, blood streaked bowels, constipated, diarrhea, dysphagia, difficulty swallowing, hematemesis, melena, nausea, poor appetite, poor fluid intake, rectal bleeding, rectal pain, vomiting, others Genitourinary: denies: burning, dysuria, flank pain, frequency, hematuria, incontinence, penile discharge, penile sore, pain, testicle pain, testicle swelling, urgency, others Neurological: denies: dizziness, fainting, headache, left sided numbness, left sided weakness, numbness, paresthesia, pre-existing deficit, right sided numbness, right sided weakness, seizure, speech problems, tingling, tremors, weakness, others Musculoskeletal: denies: back pain, gout, joint pain, joint swelling, muscle pain, muscle stiffness, neck pain, others Integumetry: denies: bruises, change in color, change in hair/nails, dryness, laceration, lesions, lumps, rash, wounds, others Allergic/Immunocompromised: denies: Difficulty Healing, Frequent Infections, Hives, Itching, others Hematologic/Lymphatic: denies: anemia, blood clots, easy bleeding, easy bruising, swollen glands, others Endocrine: denies: excessive hunger, excessive sweating, excessive thirst, excessive urination, flushing, intolerance to cold, intolerance to heat, unexplained weight gain, unexplained weight loss, others Psychiatric: denies: anxiety, bipolar disorder, depression, hopeless, panic disorder, schizophrenia, sleepless, suicidal, others All Other Systems: Reviewed and Negative Physical Exam General Appearance: No Apparent Distress, Normal, Other (Appears weak) HEENT: Normal ENT Inspection, Pharynx Normal, TMs Normal Neck: Full Range of Motion, Non-Tender, Normal, Normal Inspection Respiratory: Chest Non-Tender, Lungs Clear, No Accessory Muscle Use, No Respiratory Distress, Normal Breath Sounds Cardiovascular: No Edema, No JVD, No Murmur, No Gallop, Normal Peripheral Pulses, Regular Rate/Rhythm Breast Exam: Deferred Gastrointestinal: No Organomegaly, Non Tender, No Pulsatile Mass, Normal Bowel Sounds, Soft Genitalia: Deferred Pelvic: Deferred Rectal: Deferred Extremities: No calf tenderness, Normal capillary refill, Normal inspection, Normal range of motion, Non-tender, No pedal edema Musculoskeletal : Apperance: Normal Neurologic: Alert, No Motor Deficits, Normal Affect, Normal Mood, No Sensory Deficits Cerebellar Function: Normal Reflexes: Normal Skin: Dry, Normal Color, Warm Lymphatic: No Adenopathy Was a procedure done? Was a procedure done?: No EKG EKG : Comments Rate of 81 sinus rhythm inverted T-waves in V2 V3 V4 V5 V6 Differential Dx Considerations may include: Gastroenteritis, dehydration, electrolyte disturbance,, cardiogenic syncope, vasovagal syncope, orthostatic hypotension X-Ray, Labs, Meds, VS Vital Signs Date Time Temp Pulse Resp B/P (MAP) Pulse Ox O2 Delivery O2 Flow Rate FiO2 07/31/25 16:28 94 Room Air* 0 21 07/31/25 16:25 80 18 94 Room Air* 0 21 07/31/25 16:00 80 17 120/72 (88) 94 07/31/25 15:44 98.0 85 17 88/57 (67) 94 98.0 07/31/25 15:30 98.6 106 18 106/66 98 98.6 07/31/25 14:49 88 Lab Test 07/31/25 17:38 07/31/25 15:48 07/31/25 14:55 Range/Units Troponin I High Sensitivity Pending 11 10 </=54 ng/L White Blood Count 8.5 4.4-10.8 10^3/uL Red Blood Count 4.14 L 4.5-5.90 10^6/uL Hemoglobin 12.9 L 13.5-17.5 g/dL Hematocrit 37.9 L 41.0-53.0 % Mean Corpuscular Volume 91.4 80.0-100.0 fL Mean Corpuscular Hemoglobin 31.1 28.0-32.0 pg Mean Corpuscular Hemoglobin Concent 34.0 32.0-36.0 g/dL Red Cell Distribution Width 17.7 H 11.8-14.3 % Platelet Count 520 H 140-450 10^3/uL Mean Platelet Volume 7.8 6.9-10.8 fL Neutrophils (%) (Auto) 72.0 37.0-80.0 % Lymphocytes (%) (Auto) 18.0 10.0-50.0 % Monocytes (%) (Auto) 8.3 0.0-12.0 % Eosinophils (%) (Auto) 0.7 0.0-7.0 % Basophils (%) (Auto) 1.0 0.0-2.0 % Neutrophils # (Auto) 6.1 1.6-8.6 10 ^3/uL Lymphocytes # (Auto) 1.5 0.4-5.4 10 ^3/uL Monocytes # (Auto) 0.7 0-1.3 10 ^3/uL Eosinophils # (Auto) 0.1 0-0.8 10 ^3/uL Basophils # (Auto) 0.1 0-0.2 10 ^3/uL Nucleated Red Blood Cells 0.1 % Sodium Level 137 136-145 mmol/L Potassium Level 3.9 3.5-5.1 mmol/L Chloride Level 103 98-107 mmol/L Carbon Dioxide Level 19 L 20-31 mmol/L Anion Gap 15 5-15 Blood Urea Nitrogen 12 9-23 mg/dL Creatinine 1.33 H 0.700-1.30 mg/dL Glomerular Filtration Rate Calc 62 >90 mL/min BUN/Creatinine Ratio 9.0 L 10.0-20.0 Serum Glucose 120 H 74-106 mg/dL Calcium Level 9.0 8.7-10.4 mg/dL Total Bilirubin 0.5 0.2-1.0 mg/dL Aspartate Amino Transferase (AST) 21 13-40 U/L Alanine Aminotransferase (ALT) 15 7-40 U/L Alkaline Phosphatase 106 46-116 U/L Total Protein 6.5 5.7-8.2 g/dL Albumin 3.8 3.2-4.8 g/dL Current Medications Medications (Trade) Dose Ordered Sig/Ariel Route Start Time Stop Time Status Last Admin Sodium Chloride 1,000 ml @ 1,000 mls/hr Q1H ONCE IV 07/31/25 16:30 07/31/25 17:29 DC 07/31/25 16:37 59-year-old male presents here status post multiple presyncopal episodes. Patient states he has been stating it hotel since recent discharge after sepsis. He states however when he eats something he does not feel well and therefore may go a whole day without eating or drinking. He presents today with multiple presyncopal episodes. He has not hit his head anytime. He is not on blood thinners. However at this time he is having a hard time ambulating due to his significant weakness. At this time blood work has been done which is largely unremarkable except for mild acute kidney injury. Troponin is negative. EKG with multiple inverted T-waves. At this time however given his significant weakness, patient not safe for discharge home. At this time patient has a member of [facility], call has been made to [facility] and [facility] for admission. At this time at 6:00 p.m. I have transfer patient care to Dr. Riddle. Time of 1ST Reevaluation: 16:11 Reevaluation 1ST: Unchanged Patient Education/Counseling: Diagnosis, Treatment, Prognosis Family Education/Counseling: No Family Present SEPSIS Sepsis Screen Date sepsis recognized/suspect: Jul 31, 2025 Time Sepsis recognized/suspect: 1449 Recent Procedure: No On Antibiotic Therapy: No Respiratory Rate >20: No Heart Rate >90: Yes Temp<36 C (96.8 F) or >38.3 C: No SBP <90 or MAP <65 mmHG: No New Acute Mental Status Change: No Is the patient on CPAP, BIPAP,: No Physician Orders Urinalysis (07/31/25 15:07) Electrocardigram (07/31/25 15:11) Troponin-I Hs (07/31/25 18:11) Electrocardigram (07/31/25 16:11) Electrocardigram (07/31/25 18:11) Chest Portable (07/31/25 15:11) Vital Signs Date Time Temp Pulse Resp B/P (MAP) Pulse Ox O2 Delivery O2 Flow Rate FiO2 07/31/25 16:28 94 Room Air* 0 21 07/31/25 16:25 80 18 94 Room Air* 0 21 07/31/25 16:00 80 17 120/72 (88) 94 07/31/25 15:44 98.0 85 17 88/57 (67) 94 98.0 07/31/25 15:30 98.6 106 18 106/66 98 98.6 07/31/25 14:49 88 Laboratory Tests Test 07/31/25 14:55 White Blood Count 8.5 10^3/uL (4.4-10.8) Medications Medications Dose Ordered Sig/Ariel Route Start Time Stop Time Status Last Admin Dose Admin Sodium Chloride 1,000 ml @ 1,000 mls/hr Q1H ONCE IV 07/31/25 16:30 07/31/25 17:29 DC 07/31/25 16:37 Departure 1 Departure Time of Disposition: 17:49 Impression: Primary Impression: Pre-syncope Additional Impressions: Acute kidney injury Generalized weakness Disposition: 02 SHORT TERM HOSPITAL Condition: Fair Critical Care Note Critical Care Time?: No Stability Stability form required: No Heart Score Heart Score: Heart Score Response (Comments) Value History N/A 0 EKG N/A 0 Age N/A 0 Risk Factors N/A 0 Troponin N/A 0 Total 0 I personally scribed for TORRES GONSALVES MD ([email or web address]) on 07/31/25 at 16:04. Electronically submitted by Susana Llanos ([facility]). I personally scribed for TORRES GONSALVES MD ([email or web address]) on 07/31/25 at 16:18. Electronically submitted by Susana Llanos ([facility] [employer]). TORRES GONSALVES MD Jul 31, 2025 16:04
[2025-07-31 16:25] VITALS: PULSE 80; RESP 18; O2SAT 94
--- NOTE | 2025-07-31 16:36 | DVH ---
CHEST RADIOGRAPH Indication: Chest pain Technique: Single frontal view of the chest was obtained Comparison: XY CHEST PORTABLE on DOS: 06/17/25 FINDINGS: Lines and Tubes: None Lungs: Decreased inspiratory effort with elevation of both diaphragms. Pleura: No effusion. No pneumothorax. Cardiomediastinal contours: Cardiomegaly most likely due to poor inspiratory effort. Bones: No acute osseous abnormality. IMPRESSION: 1. Poor inspiratory effort with atelectasis right base and elevation right diaphragm.
[2025-07-31] MEDS: SODIUM CHLORIDE 0.9% 1,000 ML IV ONE (16:37)
[2025-07-31] MEDS: ONDANSETRON HCL 4 MG/2 ML VIAL IV ONE (18:27)
[2025-07-31 19:45] VITALS: BP 145/73; PULSE 78; RESP 17; TEMP 98.4; O2SAT 94
--- NOTE | 2025-08-01 06:35 | ECG ---
[facility] Test Date: 2025-07-31 Test Time: 16:19:03 Pat Name: DAYNE FORRESTER Department: [facility] ED Patient ID: [id number] Room: Gender: M [employer] Supervisor: hal : 1965 Requested By: TORRES GONSALVES Order Number: [id number] Reading MD: Jerrod Zelaya Measurements Intervals [place] Rate: 81 P: 0 DE: 204 QRS: -11 QRSD: 136 T: -68 QT: 414 QTc: 481 Interpretive Statements Sinus rhythm Borderline prolonged DE interval IVCD, consider atypical RBBB Nonspecific T abnormalities, lateral leads Electronically Signed On 08-02-2025 10:58:27 PST by Jerrod Zelaya Please click the below link to view image of tracing.
--- NOTE | 2025-08-02 07:24 | ECG ---
[facility] Test Date: 2025-07-31 Test Time: 14:49:04 Pat Name: DAYNE FORRESTER Department: [facility] ED Patient ID: [id number] Room: Gender: M [employer] Journeyman: hal : 1965 Requested By: TORRES GONSALVES Order Number: [id number] Reading MD: Jerrod Zelaya Measurements Intervals [place] Rate: 88 P: 0 LA: 153 QRS: -21 QRSD: 155 T: 1 QT: 405 QTc: 490 Interpretive Statements Sinus rhythm Atrial premature complex Nonspecific intraventricular conduction delay Borderline ST depression, diffuse leads Electronically Signed On 08-02-2025 10:58:15 PST by Jerrod Zelaya Please click the below link to view image of tracing.
== END 2025-07-31 19:56 | disposition home or self-care (01) ==
LOC: EDBD 14:47 → ER 14:47
DX: N17.9 Acute kidney failure, unspecified (principal); R53.1 Weakness; R55 Syncope and collapse; E11.9 Type 2 diabetes mellitus without complications; I10 Essential (primary) hypertension; J45.909 Unspecified asthma, uncomplicated; Z79.899 Other long term (current) drug therapy; Z91.030 Bee allergy status; Z88.0 Allergy status to penicillin; Z79.51 Long term (current) use of inhaled steroids
CPT/HCPCS: 36415; 71045; 80053; 82947; 84484; 85025; 93005; 96361; 96374; 99285; J2405; J7030